=== PATIENT | female | born 1990 | race Caucasian/White ===

== ENCOUNTER → 2021-03-22 | Outpatient (CLI) | payer OTHER ==
--- NOTE | 2021-03-22 15:21 | US ---
EXAMINATION TYPE: Transabdominal DATE OF EXAM: 03/22/2021 3:07 PM COMPARISON: NONE CLINICAL HISTORY: Z36 CONFIRM DATES. EXAM PERFORMED: EXAM MEASUREMENTS: GESTATIONAL AGE / DATING Physician Established: Not yet established Dates by LMP: (8 weeks/5 days) EDC: 10-27-21 Dates by First Scan: No previous this is first Dates by Current Scan for: (9 weeks/0 days) EDC: 10-25-21 MATERNAL ANATOMY Uterus: 12.4 x 5.1 x 6.7cm Right Ovary: 2.0 x 1.6 x 1.4cm Left Ovary: 2.7 x 2.2 x 1.9cm Post CDS / Adnexa: wnl Presence of free fluid: no Possible corpus luteal cyst measuring 1.9 x 1.4 x 1.6cm GESTATION / SURVEY CRL: 2.3cm (9 weeks/0 days) Yolk Sac (normal less than 6mm): Heart Rate: 179 bpm Rhythm: Normal IUP: Viable IUP Date of LMP: 01-20-21 IMPRESSION: Single viable intrauterine .
== END | disposition home or self-care (01) ==
LOC: RADUSWWP 14:50
PROVIDERS: ATTEND Obstetrics & Gynecology
DX: Z36.89 Encounter for other specified antenatal screening (principal); Z3A.09 9 weeks gestation of pregnancy
CPT/HCPCS: 76801

== ENCOUNTER 2021-03-28 17:16 | Emergency (ER) | payer OTHER ==
[2021-03-28 17:24] VITALS: BP 126/85; PULSE 100; RESP 16; TEMP 97.8
[2021-03-28] MEDS ORDERED: SODIUM CHLORIDE 0.9% 1,000 ML IV STA (18:13)
[2021-03-28] MEDS ORDERED: ONDANSETRON 4 MG/2 ML VIAL IVP STA (18:13)
[2021-03-28 18:28] LABS: Basophils # (A) 0.1 k/uL (0-0.2); Basophils % (A) 1 %; Eosinophils # (A) 0.1 k/uL (0-0.7); Eosinophils % (A) 2 %; HCT 43.1 % (34.0-46.0); HGB 15.2 gm/dL (11.4-16.0); Lymphocytes # (A) 1.8 k/uL (1.0-4.8); Lymphocytes % (A) 20 %; MCH 30.6 pg (25.0-35.0); MCHC 35.3 g/dL (31.0-37.0); MCV 86.6 fL (80.0-100.0); Monocytes # (A) 0.5 k/uL (0-1.0); Monocytes % (A) 6 %; Neutrophils # (A) 6.4 k/uL (1.3-7.7); Neutrophils % (A) 70 %; Platelet Count 320 k/uL (150-450); RBC 4.98 m/uL (3.80-5.40); RDW 12.5 % (11.5-15.5); WBC 9.1 k/uL (3.8-10.6)
--- NOTE | 2021-03-28 18:33 | ED ---
Nausea/Vomiting/Diarrhea HPI - General Chief complaint: Nausea/Vomiting/Diarrhea Stated complaint: 10wks preg, N/V/D Time Seen by Provider: 03/28/21 17:53 Source: patient Mode of arrival: ambulatory Limitations: no limitations - History of Present Illness Initial comments: Patient is a 30-year-old female, currently 10 weeks , presenting to the emergency Department with complaints of intermittent nausea and vomiting over the past few weeks. She is also complaining of some diarrhea that started 2 days ago. This is patient's first , her DEAF AND HARD OF HEARING TEACHER is Dr. Mcclelland. She states she has been dealing with nausea throughout this but states it feels like its getting worse over the past week. She states she has not been able to tolerate many foods, can barely hold down any liquids. She did speak to her DEAF AND HARD OF HEARING TEACHER, Dr. Mcclelland about this and they recommended some Benadryl and B6 however patient states she is taking Benadryl to sleep and does not want to sleep all day. She denies any abdominal pain, no vaginal bleeding. She states she just had an ultrasound last week, baby looks well, no acute abnormalities. She denies any fevers or chills, no dysuria. She has no further complaints at this time. Upon arrival to the ER, her vital signs are stable. - Related Data Home Medications Medication Instructions Recorded Confirmed Pnv,Calcium 72/Iron/Folic Acid 1 tab PO HS 03/28/21 03/28/21 [ Plus Tablet] Previous Rx's Medication Instructions Recorded Metoclopramide [Reglan] 10 mg PO TID PRN #15 tab 03/28/21 Allergies Allergy/AdvReac Type Severity Reaction Status Date / Time No Known Allergies Allergy Verified 03/28/21 18:32 Review of Systems ROS Statement: Those systems with pertinent positive or pertinent negative responses have been documented in the HPI. ROS Other: All systems not noted in ROS Statement are negative. Past Medical History Past Medical History: No Reported History Past Surgical History: No Surgical Hx Reported Smoking Status: Never smoker Past Alcohol Use History: None Reported Past Drug Use History: None Reported General Exam - General Exam Comments Initial Comments: GENERAL: Patient is well-developed and well-nourished. Patient is nontoxic and in no acute distress. HEAD: Atraumatic, normocephalic. EYES: Pupils equal round and reactive to light, extraocular movements intact, sclera anicteric, conjunctiva are normal. Eyelids were unremarkable. ENT: TMs normal, nares patent, oropharynx clear without exudates. Moist mucous membranes. NECK: Normal range of motion, supple without lymphadenopathy or JVD. LUNGS: Unlabored respirations. Breath sounds clear to auscultation bilaterally and equal. No wheezes rales or rhonchi. HEART: Regular rate and rhythm without murmurs, rubs or gallops. ABDOMEN: Soft, nontender, normoactive bowel sounds. No guarding, no rebound. No masses appreciated. : Deferred MUSCULOSKELETAL: Normal extremities with adequate strength and normal range of motion, no pitting or edema. No clubbing or cyanosis. NEUROLOGICAL: Patient is alert and oriented x 3. Motor and sensory are also intact. Cranial nerves II through XII grossly intact. Symmetrical smile. Normal speech, normal gait. PSYCH: Normal mood, normal affect. SKIN: Warm, Dry, normal turgor, no rashes or lesions noted. Limitations: no limitations Course Vital Signs 03/28/21 17:21 Temperature 97.8 F Pulse Rate 100 Respiratory 16 Rate Blood Pressure 126/85 O2 Sat by Pulse 99 Oximetry Medical Decision Making - Medical Decision Making Patient is a 30-year-old female, currently 10 weeks , first , DEAF AND HARD OF HEARING TEACHER is Dr. Mcclelland, presenting for nausea and vomiting this been worsening over the past 2 weeks. She is also had 2 days of diarrhea. No abdominal pain, no vaginal bleeding. She just had an ultrasound last week, looks well, heart rate was normal. Her vital signs are stable upon arrival. No abdominal pain on exam. Patient's labs show no acute abnormality, urine did have 2+ ketones, no signs of infection. Patient was given a liter of fluids, Zofran and Reglan. She does report improvement in her symptoms. She states she is hungry and wishes to go home. Patient is complaining of a mild headache, requesting Tylenol at discharge. She can follow-up with her DEAF AND HARD OF HEARING TEACHER. Return parameters were discussed with the patient and she verbalized understanding. Case discussed with Dr. Grajeda. - Lab Data Result diagrams: 03/28/21 18:16 03/28/21 18:16 Lab Results 03/28/21 03/28/21 03/28/21 Range/Units 18:16 18:16 18:16 WBC 9.1 (3.8-10.6) k/uL RBC 4.98 (3.80-5.40) m/uL Hgb 15.2 (11.4-16.0) gm/dL Hct 43.1 (34.0-46.0) % MCV 86.6 (80.0-100.0) fL MCH 30.6 (25.0-35.0) pg MCHC 35.3 (31.0-37.0) g/dL RDW 12.5 (11.5-15.5) % Plt Count 320 (150-450) k/uL MPV 7.0 Neutrophils % 70 % Lymphocytes % 20 % Monocytes % 6 % Eosinophils % 2 % Basophils % 1 % Neutrophils # 6.4 (1.3-7.7) k/uL Lymphocytes # 1.8 (1.0-4.8) k/uL Monocytes # 0.5 (0-1.0) k/uL Eosinophils # 0.1 (0-0.7) k/uL Basophils # 0.1 (0-0.2) k/uL Sodium 137 (137-145) mmol/L Potassium 4.0 (3.5-5.1) mmol/L Chloride 103 (98-107) mmol/L Carbon Dioxide 22 (22-30) mmol/L Anion Gap 12 mmol/L BUN 8 (7-17) mg/dL Creatinine 0.59 (0.52-1.04) mg/dL Est GFR (CKD-EPI)AfAm >90 (>60 ml/min/1.73 sqM) Est GFR (CKD-EPI)NonAf >90 (>60 ml/min/1.73 sqM) Glucose 88 (74-99) mg/dL Calcium 10.4 H (8.4-10.2) mg/dL Total Bilirubin 1.5 H (0.2-1.3) mg/dL AST 19 (14-36) U/L ALT 16 (4-34) U/L Alkaline Phosphatase 62 (38-126) U/L Total Protein 8.3 H (6.3-8.2) g/dL Albumin 5.1 H (3.5-5.0) g/dL Urine Color Yellow Urine Appearance Cloudy H (Clear) Urine pH 6.0 (5.0-8.0) Ur Specific [place] 1.025 (1.001-1.035) Urine Protein Trace H (Negative) Urine Glucose (UA) Negative (Negative) Urine Ketones 2+ H (Negative) Urine Blood Negative (Negative) Urine Nitrite Negative (Negative) Urine Bilirubin Negative (Negative) Urine Urobilinogen <2.0 (<2.0) mg/dL Ur Leukocyte Esterase Large H (Negative) Urine WBC 8 H (0-5) /hpf Ur Squamous Epith Cells 12 H (0-4) /hpf Urine Mucus Many H (None) /hpf Disposition Clinical Impression: Dehydration, Nausea and vomiting during Disposition: HOME SELF-CARE Condition: Stable Instructions (If sedation given, give patient instructions): Acute Nausea and Vomiting (ED) Additional Instructions: Please return to the Emergency Department if symptoms worsen or any other concerns. Recommended trial of Benadryl at nighttime, may take Reglan for severe nausea or vomiting. Please follow up with your DEAF AND HARD OF HEARING TEACHER. Prescriptions: Metoclopramide [Reglan] 10 mg PO TID PRN #15 tab PRN Reason: Nausea Is patient prescribed a controlled substance at d/c from ED?: No Referrals: None,Stated [Primary Care Provider] - 1-2 days Isaura Mcclelland DO [Doctor of Osteopathic Medicine] - 1-2 days Time of Disposition: 20:35
[2021-03-28 18:37] LABS: ALT 16 U/L (4-34); AST 19 U/L (14-36); African American GFR (CKD) >90 (>60 ml/min/1.73 sqM); Albumin 5.1 g/dL (3.5-5.0); Alkaline Phosphatase 62 U/L (38-126); Anion Gap 12 mmol/L; Blood Urea Nitrogen 8 mg/dL (7-17); Calcium 10.4 mg/dL (8.4-10.2); Carbon Dioxide 22 mmol/L (22-30); Chloride 103 mmol/L (98-107); Glucose 88 mg/dL (74-99); Non-African American GFR(CKD) >90 (>60 ml/min/1.73 sqM); Sodium 137 mmol/L (137-145); Total Bilirubin 1.5 mg/dL (0.2-1.3); Total Protein 8.3 g/dL (6.3-8.2)
[2021-03-28 18:39] LABS: Appearance,Urine Cloudy (Clear); Bilirubin,Urine Negative (Negative); Blood,Urine Negative (Negative); Color,Urine Yellow; Glucose,Urine (UA) Negative (Negative); Ketones,Urine 2+ (Negative); Leukocyte Esterase,Urine Large (Negative); Mucus,Urine Many /hpf; Nitrite,Urine Negative (Negative); Protein,Urine Trace (Negative); Specific Gravity,Urine 1.025 (1.001-1.035); Squamous Epithelial Cell,Urine 12 /hpf (0-4); Urobilinogen,Urine <2.0 mg/dL (<2.0); WBC,Urine 8 /hpf (0-5)
[2021-03-28] MEDS ORDERED: METOCLOPRAMIDE 5 MG/ML 2 ML VIAL IVP STA (19:21)
[2021-03-28] MEDS ORDERED: ACETAMINOPHEN TAB 325 MG TAB PO STA (20:36)
== END 2021-03-28 20:49 | disposition home or self-care (01) ==
LOC: EC 17:16
DX: O99.281 Endocrine, nutritional and metabolic diseases complicating pregnancy, first trimester (principal); E86.0 Dehydration; O21.9 Vomiting of pregnancy, unspecified; O26.891 Other specified pregnancy related conditions, first trimester; R19.7 Diarrhea, unspecified; R51.9 Headache, unspecified; Z79.899 Other long term (current) drug therapy; Z3A.10 10 weeks gestation of pregnancy
CPT/HCPCS: 36415; 80053; 85025; 81001; 99284; 96374; 96375; 96361; J2765; J2405

== ENCOUNTER 2021-05-01 14:32 | Emergency (ER) | payer OTHER ==
[2021-05-01 14:56] VITALS: BP 144/85; PULSE 96; RESP 16; TEMP 98.5
[2021-05-01] MEDS ORDERED: SODIUM CHLORIDE 0.9% 1,000 ML IV ONE (15:16)
[2021-05-01 15:50] LABS: Basophils # (A) 0.1 k/uL (0-0.2); Basophils % (A) 1 %; Eosinophils # (A) 0.1 k/uL (0-0.7); Eosinophils % (A) 1 %; HGB 13.4 gm/dL (11.4-16.0); Lymphocytes # (A) 1.1 k/uL (1.0-4.8); Lymphocytes % (A) 14 %; MCH 31.3 pg (25.0-35.0); MCHC 36.2 g/dL (31.0-37.0); MCV 86.5 fL (80.0-100.0); Monocytes # (A) 0.3 k/uL (0-1.0); Monocytes % (A) 4 %; Neutrophils % (A) 79 %; Platelet Count 303 k/uL (150-450); RBC 4.27 m/uL (3.80-5.40); WBC 7.6 k/uL (3.8-10.6)
[2021-05-01 16:00] LABS: ALT 15 U/L (4-34); AST 19 U/L (14-36); African American GFR (CKD) >90 (>60 ml/min/1.73 sqM); Albumin 4.4 g/dL (3.5-5.0); Alkaline Phosphatase 58 U/L (38-126); Anion Gap 9 mmol/L; Blood Urea Nitrogen 7 mg/dL (7-17); Calcium 9.7 mg/dL (8.4-10.2); Carbon Dioxide 24 mmol/L (22-30); Chloride 104 mmol/L (98-107); Glucose 83 mg/dL (74-99); Non-African American GFR(CKD) >90 (>60 ml/min/1.73 sqM); Potassium 4.3 mmol/L (3.5-5.1); Sodium 137 mmol/L (137-145); Total Bilirubin 0.9 mg/dL (0.2-1.3); Total Protein 7.4 g/dL (6.3-8.2)
--- NOTE | 2021-05-01 16:19 | ED ---
Abdominal Pain HPI - General Chief Complaint: Abdominal Pain Stated Complaint: Poss miscarriage Time Seen by Provider: 05/01/21 15:03 Source: patient, RN notes reviewed Mode of arrival: ambulatory Limitations: no limitations - History of Present Illness Initial Comments: 31-year-old female presents to emergency department with some abdominal cramping. She notes she is 15 weeks . She notes that she has vomited several times of the last 2 days. She notes that she came in for evaluation as she was just concerned about her baby. She was in no apparent distress or pain while sitting up in bed during the exam and interview. She denied any other symptoms or complaints. She denied any vaginal bleeding/spotting. She notes that she did not call her COMPUTER SYSTEMS TECHNOLOGY INSTRUCTOR she just can emergency room to get evaluated first. She denied any chest pain first breath headache nausea vomiting diarrhea constipation fever fatigue chills. - Related Data Home Medications Medication Instructions Recorded Confirmed Pnv,Calcium 72/Iron/Folic Acid 1 tab PO HS 03/28/21 03/28/21 [ Plus Tablet] Previous Rx's Medication Instructions Recorded Metoclopramide [Reglan] 10 mg PO TID PRN #15 tab 03/28/21 Allergies Allergy/AdvReac Type Severity Reaction Status Date / Time No Known Allergies Allergy Verified 05/01/21 14:54 Review of Systems ROS Statement: Those systems with pertinent positive or pertinent negative responses have been documented in the HPI. ROS Other: All systems not noted in ROS Statement are negative. Past Medical History Past Medical History: No Reported History History of Any Multi-Drug Resistant Organisms: None Reported Past Surgical History: No Surgical Hx Reported Past Psychological History: No Psychological Hx Reported Smoking Status: Never smoker Past Alcohol Use History: None Reported Past Drug Use History: None Reported General Exam Limitations: no limitations General appearance: alert, in no apparent distress Head exam: Present: atraumatic, normocephalic, normal inspection Eye exam: Present: normal appearance, PERRL, EOMI. Absent: scleral icterus, conjunctival injection, periorbital swelling Neck exam: Present: normal inspection Respiratory exam: Present: normal lung sounds bilaterally. Absent: respiratory distress, wheezes, rales, rhonchi, stridor Cardiovascular Exam: Present: regular rate, normal rhythm, normal heart sounds. Absent: systolic murmur, diastolic murmur, rubs, gallop, clicks GI/Abdominal exam: Present: soft, normal bowel sounds, other (Discomfort lower abdomen to palpation, nontender). Absent: distended, tenderness, guarding, rebound, rigid Extremities exam: Present: normal inspection, full ROM, normal capillary refill. Absent: tenderness, pedal edema, joint swelling, calf tenderness Neurological exam: Present: alert, oriented X3 Psychiatric exam: Present: normal affect, normal mood Skin exam: Present: warm, dry, intact, normal color. Absent: rash Course Vital Signs 05/01/21 14:54 Temperature 98.5 F Pulse Rate 96 Respiratory 16 Rate Blood Pressure 144/85 O2 Sat by Pulse 98 Oximetry Medical Decision Making - Medical Decision Making 31-year-old female who is 15 weeks complaining of abdominal cramping and some discomfort in her lower abdomen. Labs, ultrasound, 1 L normal saline ordered. Labs unremarkable. Ultrasound negative for any acute process shows a 16 week 1 day gestation. Case discussed with Dr. Vance, patient can discharge home with follow-up to COMPUTER SYSTEMS TECHNOLOGY INSTRUCTOR. - Lab Data Result diagrams: 05/01/21 15:29 05/01/21 15:29 Lab Results 05/01/21 05/01/21 05/01/21 Range/Units 15:29 15:29 16:13 WBC 7.6 (3.8-10.6) k/uL RBC 4.27 (3.80-5.40) m/uL Hgb 13.4 (11.4-16.0) gm/dL Hct 37.0 (34.0-46.0) % MCV 86.5 (80.0-100.0) fL MCH 31.3 (25.0-35.0) pg MCHC 36.2 (31.0-37.0) g/dL RDW 13.0 (11.5-15.5) % Plt Count 303 (150-450) k/uL MPV 7.0 Neutrophils % 79 % Lymphocytes % 14 % Monocytes % 4 % Eosinophils % 1 % Basophils % 1 % Neutrophils # 6.0 (1.3-7.7) k/uL Lymphocytes # 1.1 (1.0-4.8) k/uL Monocytes # 0.3 (0-1.0) k/uL Eosinophils # 0.1 (0-0.7) k/uL Basophils # 0.1 (0-0.2) k/uL Sodium 137 (137-145) mmol/L Potassium 4.3 (3.5-5.1) mmol/L Chloride 104 (98-107) mmol/L Carbon Dioxide 24 (22-30) mmol/L Anion Gap 9 mmol/L BUN 7 (7-17) mg/dL Creatinine 0.46 L (0.52-1.04) mg/dL Est GFR (CKD-EPI)AfAm >90 (>60 ml/min/1.73 sqM) Est GFR (CKD-EPI)NonAf >90 (>60 ml/min/1.73 sqM) Glucose 83 (74-99) mg/dL Calcium 9.7 (8.4-10.2) mg/dL Total Bilirubin 0.9 (0.2-1.3) mg/dL AST 19 (14-36) U/L ALT 15 (4-34) U/L Alkaline Phosphatase 58 (38-126) U/L Total Protein 7.4 (6.3-8.2) g/dL Albumin 4.4 (3.5-5.0) g/dL HCG, Quant 99460.1 mIU/mL Blood Type O Positive Blood Type Recheck No Previous Record Bld Type Recheck Status [facility] ONLY - Radiology Data Radiology results: report reviewed, image reviewed Ultrasound: The ultrasound gestational age is 16 weeks 1 day. The weight is 97%. No [place] came process seen. Disposition Clinical Impression: Abdominal pain Disposition: HOME SELF-CARE Condition: Stable Instructions (If sedation given, give patient instructions): Abdominal Pain (ED) Additional Instructions: Please return to the Emergency Department if symptoms worsen or any other concerns. Follow-up with COMPUTER SYSTEMS TECHNOLOGY INSTRUCTOR as soon as possible. Increase oral fluids. Is patient prescribed a controlled substance at d/c from ED?: No Referrals: None,Stated [Primary Care Provider] - 1-2 days Time of Disposition: 17:22
[2021-05-01 16:44] LABS: HCG,Quantitative Serum 33779.1 mIU/mL
--- NOTE | 2021-05-01 17:05 | US ---
EXAMINATION TYPE: US OB >= 14 wk fetus DATE OF EXAM: 05/01/2021 COMPARISON: 03/22/2021 CLINICAL HISTORY: pain TECHNIQUE: Transabdominal (TA) GESTATIONAL AGE / DATING Physician Established: (14 weeks/6 days) EDC: 10-24-21 Dates by LMP: (14weeks/3days) 10-27-21 Dates by First Scan: (14weeks/5days) 10-25-21 Dates by Current Scan: (16 weeks/1 days) EDC: 10-15-21 SURVEY IUP: Single PLACENTA: Posterior PREVIA: No Previa FRANCISCO: 13.8 cm CERVICAL LENGTH (transabdominal: norm > 3.0cm): 3.3 cm BIOMETRY PRESENTATION: Breech BPD: 3.2 cm 16 weeks / 0 days HC: 12.1 cm 16 weeks / 0 days AC: 10.0 cm 16 weeks / 0 days FL: 2.0 cm 16 weeks / 0 days ESTIMATED WEIGHT IN GRAMS: 143 grams ESTIMATED WEIGHT IN LBS/OZ: 0 lbs. 5 oz. WEIGHT PERCENTAGE BASED ON ESTABLISHED DATES: 97% HC/AC: 1.2 FL/AC: 20 HEART RATE: 149 bpm RHYTHM: Normal IMPRESSION: The ultrasound gestational age is 16 weeks and 1 day. The weight is 97 percentile. No complicat ing process seen.
== END 2021-05-01 18:01 | disposition home or self-care (01) ==
LOC: EC 14:32
DX: O26.892 Other specified pregnancy related conditions, second trimester (principal); R10.30 Lower abdominal pain, unspecified; Z3A.16 16 weeks gestation of pregnancy
CPT/HCPCS: 36415; 76805; 80053; 84702; 85025; 86900; 86901; 96360; 99284

== ENCOUNTER 2021-07-15 13:14 | Emergency (ER) | payer OTHER ==
--- NOTE | 2021-07-15 13:58 | ED ---
General Adult HPI - General Chief complaint: Psychiatric Symptoms Stated complaint: EPS eval Time Seen by Provider: 07/15/21 13:25 Source: patient, RN notes reviewed, old records reviewed Mode of arrival: ambulatory Limitations: no limitations - History of Present Illness Initial comments: 31-year-old female presenting with chief complaint of depression, suicidal ideation. Denies suicide attempt. She is currently 27 weeks she is having some mild abdominal cramping. No vaginal discharge or vaginal bleeding. This is her first . She is following with obstetrics as an outpatient. She reports increased stress in her life increased depression and anxiety, and suicidal ideation. - Related Data Home Medications Medication Instructions Recorded Confirmed Pnv,Calcium 72/Iron/Folic Acid 1 tab PO HS 03/28/21 03/28/21 [ Plus Tablet] Previous Rx's Medication Instructions Recorded Metoclopramide [Reglan] 10 mg PO TID PRN #15 tab 03/28/21 Allergies Allergy/AdvReac Type Severity Reaction Status Date / Time No Known Allergies Allergy Verified 07/15/21 13:22 Review of Systems ROS Statement: Those systems with pertinent positive or pertinent negative responses have been documented in the HPI. ROS Other: All systems not noted in ROS Statement are negative. Past Medical History Past Medical History: No Reported History History of Any Multi-Drug Resistant Organisms: None Reported Past Surgical History: No Surgical Hx Reported Past Psychological History: No Psychological Hx Reported Smoking Status: Never smoker Past Alcohol Use History: None Reported Past Drug Use History: None Reported General Exam Limitations: no limitations General appearance: alert, anxious Head exam: Present: atraumatic, normocephalic Eye exam: Present: normal appearance, PERRL ENT exam: Present: normal exam Neck exam: Present: normal inspection. Absent: tenderness, meningismus Respiratory exam: Present: normal lung sounds bilaterally. Absent: respiratory distress, wheezes Cardiovascular Exam: Present: regular rate, normal rhythm GI/Abdominal exam: Present: soft, other (Gravid). Absent: distended, tenderness, guarding Extremities exam: Present: normal inspection, normal capillary refill. Absent: pedal edema Neurological exam: Present: alert, oriented X3, CN II-XII intact. Absent: motor sensory deficit Psychiatric exam: Present: depressed, anxious, suicidal ideation Skin exam: Present: warm, dry, intact. Absent: cyanosis, diaphoretic Course Vital Signs 07/15/21 13:22 Temperature 98.2 F Pulse Rate 100 Respiratory 18 Rate Blood Pressure 144/102 O2 Sat by Pulse 97 Oximetry - Reevaluation(s) Reevaluation #1: 07/15/21 13:[address] Jason covering for Dr. Hatfield who is the patient's complementary health therapists who recommends monitoring and cervix checked. OB staff has been contacted. Medical Decision Making - Medical Decision Making Patient had been evaluated both by obstetrics, had normal heart tones, closed cervix. She was also evaluated by EPS and felt to be safe for discharge. She's given outpatient referrals. I did reevaluate the patient and she is indeed significantly improved and feeling agreeable with discharge. Return parameters discussed. - Lab Data Lab Results 07/15/21 Range/Units 15:53 Urine Color Yellow Urine Appearance Cloudy H (Clear) Urine pH 6.5 (5.0-8.0) Ur Specific [place] 1.016 (1.001-1.035) Urine Protein Negative (Negative) Urine Glucose (UA) Negative (Negative) Urine Ketones Negative (Negative) Urine Blood Negative (Negative) Urine Nitrite Negative (Negative) Urine Bilirubin Negative (Negative) Urine Urobilinogen <2.0 (<2.0) mg/dL Ur Leukocyte Esterase Moderate H (Negative) Urine RBC <1 (0-5) /hpf Urine WBC 9 H (0-5) /hpf Ur Squamous Epith Cells 3 (0-4) /hpf Urine Bacteria Few H (None) /hpf Urine Mucus Occasional H (None) /hpf Disposition Clinical Impression: Depression, Disposition: HOME SELF-CARE Condition: Fair Instructions (If sedation given, give patient instructions): Depression (ED) Additional Instructions: Please follow up with [facility]. Please return to the emergency department if needed. Please follow up with your complementary health therapists. Is patient prescribed a controlled substance at d/c from ED?: No Referrals: None,Stated [Primary Care Provider] - 1-2 days
[2021-07-15 16:00] LABS: Appearance,Urine Cloudy (Clear); Bacteria,Urine Few /hpf; Bilirubin,Urine Negative (Negative); Blood,Urine Negative (Negative); Color,Urine Yellow; Glucose,Urine (UA) Negative (Negative); Ketones,Urine Negative (Negative); Leukocyte Esterase,Urine Moderate (Negative); Mucus,Urine Occasional /hpf; Nitrite,Urine Negative (Negative); PH, Urine 6.5 (5.0-8.0); Protein,Urine Negative (Negative); RBC,Urine <1 /hpf (0-5); Specific Gravity,Urine 1.016 (1.001-1.035); Squamous Epithelial Cell,Urine 3 /hpf (0-4); Urobilinogen,Urine <2.0 mg/dL (<2.0); WBC,Urine 9 /hpf (0-5)
[2021-07-15 16:10] VITALS: BP 156/83; PULSE 84; RESP 16; TEMP 97.8
[2021-07-15 16:19] LABS: Amphetamine Screen,Urine Not Detected (NotDetected); Barbiturate Screen,Urine Not Detected (NotDetected); Benzodiazepines Screen,Urine Not Detected (NotDetected); Cocaine Screen,Urine Not Detected (NotDetected); Methadone Screen, Urine Not Detected (NotDetected); Opiate Screen,Urine Not Detected (NotDetected); Oxycodone Screen, Urine Not Detected (NotDetected); Phencyclidine Screen,Urine Not Detected (NotDetected); Tricyclic Antidepressant,Urine Not Detected (NotDetected); Urn Cannabinoid Scrn Not Detected (NotDetected)
== END 2021-07-15 16:09 | disposition home or self-care (01) ==
LOC: EC 13:14
DX: O99.342 Other mental disorders complicating pregnancy, second trimester (principal); F32.9 Major depressive disorder, single episode, unspecified; Z3A.27 27 weeks gestation of pregnancy
CPT/HCPCS: 80306; 81001; 99284

== ENCOUNTER 2021-09-01 10:53 | Outpatient (CLI) | payer OTHER ==
[2021-09-01] MEDS ORDERED: AMPICILLIN 2,000 MG in SODIUM CHLORIDE 0.9% 100 ML IVPB STA (11:25)
[2021-09-01] MEDS ORDERED: AZITHROMYCIN 500 MG in SODIUM CHLORIDE 0.9% 250 ML IVPB STA (11:25)
[2021-09-01] MEDS ORDERED: hydrALAZINE HCL 20 MG/ML 1 ML VIAL IVP PRN (11:27)
[2021-09-01] MEDS ORDERED: LABETALOL 5 MG/ML VIAL MDV IVP PRN ×3 (11:27)
[2021-09-01] MEDS ORDERED: LACTATED RINGERS 1,000 ML IV SCH (11:30)
[2021-09-01 11:42] LABS: Basophils # (A) 0.1 k/uL (0-0.2); Basophils % (A) 1 %; Eosinophils # (A) 0.1 k/uL (0-0.7); Eosinophils % (A) 1 %; HCT 37.1 % (34.0-46.0); HGB 12.8 gm/dL (11.4-16.0); Lymphocytes # (A) 1.8 k/uL (1.0-4.8); Lymphocytes % (A) 18 %; MCH 30.6 pg (25.0-35.0); MCHC 34.4 g/dL (31.0-37.0); MCV 88.8 fL (80.0-100.0); Mean Platelet Volume 8.2; Monocytes # (A) 0.4 k/uL (0-1.0); Monocytes % (A) 4 %; Neutrophils # (A) 7.5 k/uL (1.3-7.7); Neutrophils % (A) 75 %; Platelet Count 286 k/uL (150-450); RBC 4.17 m/uL (3.80-5.40); RDW 12.8 % (11.5-15.5)
[2021-09-01 11:48] LABS: ALT 14 U/L (4-34); AST 16 U/L (14-36); African American GFR (CKD) >90 (>60 ml/min/1.73 sqM); Blood Urea Nitrogen 10 mg/dL (7-17); LDH 385 U/L (313-618); Non-African American GFR(CKD) >90 (>60 ml/min/1.73 sqM); Uric Acid 5.1 mg/dL (3.7-7.4)
[2021-09-01] MEDS ORDERED: BETAMET ACET-BETAMETH SOD PHOS 6 MG/ML MDV IM SCH (12:00)
[2021-09-01] MEDS ORDERED: MAGNESIUM SULFATE-WATER PMX 20 GM in WATER FOR INJECTION 1 500ML.BAG IV SCH (12:00)
[2021-09-01] MEDS ORDERED: MAGNESIUM SULFATE GM 6 GM in SODIUM CHLORIDE 0.9% 100 ML IVPB ONE (12:00)
[2021-09-01 12:03] LABS: Creatinine,Urine Random 91.5 mg/dL; Protein/Creatinine Ratio,Urine 0.087
--- NOTE | 2021-09-01 12:42 | P.HPOB ---
History of Present Illness H&P Date: 09/01/21 Chief Complaint: Spontaneous rupture of membranes This is a 31-year-old female 1 para 0 with an estimated date of confinement of 10/25/2021, estimated gestational age of 32-2/7 weeks, who presented to labor and delivery with complaints of spontaneous rupture of membr anes with clear fluid noted at approximately 10:17 AM this morning when she woke up. She states she sleeps with a pillow between her legs in the pillow was completely saturated and when she got up she continued to leak fluid. She denies feeling any contractions. She denies any headaches or blurry vision or epigastric pain. She denies any swelling. She was confirmed to be ruptured with positive amnisure in triage. No contractions are noted on the monitor. care up until this point has been essentially uncomplicated. Patient has had some issues with anxiety and had been using marijuana throughout the . At her last visit on 08/20/2021, she denied using any marijuana cu rrently however the room did smell of a strong THC order. Urine drug screen was obtained at that time and was negative. She is currently seeing a counselor for her anxiety and depression issues. All H labs are within normal limits with a PC ratio 0.087. Obstetrical ultrasound is performed at bedside and shows baby in a breech presentation with estimated weight of 4 lbs. 14 oz. or 2218 g (75 percentile), and FRANCISCO of 12.5 cm. Obstetrical history: This is her first Gynecologic history: She denies any history of sexually transmitted diseases. Social history: She is single. Significant other is involved. labs: First ultrasound was performed at 9 weeks and 0/7 days in confirms an EDC of 10/25/2021. She was unsure of her last menstrual period. Hepatitis B surface antigen-negative RPR-nonreactive Rubella-immune Blood type-O+ Antibody screen-negative HIV-nonreactive Hemoglobin-13.1 Random glucose-76 Quad screen-negative One hour Glucola-122 Urine drug screen on 08/20/2021-negative Pap smear-within normal limits with high risk HPV negative GC/Chlamydia/Trichomonas-negative Review of Systems Constitutional: Denies chills, Denies fever Eyes: denies blurred vision, denies pain Ears, nose, mouth and throat: Denies headache, Denies sore throat Cardiovascular: Denies chest pain, Denies shortness of breath Respiratory: Denies cough Gastrointestinal: Denies abdominal pain, Denies nausea, Denies vomiting Genitourinary: Reports , Denies pelvic pain Musculoskeletal: Denies myalgias Integumentary: Denies pruritus, Denies rash Neurological: Denies numbness, Denies weakness Past Medical History Past Medical History: No Reported History History of Any Multi-Drug Resistant Organisms: None Reported Past Surgical History: No Surgical Hx Reported Past Anesthesia/Blood Transfusion Reactions: No Reported Reaction Past Psychological History: Anxiety, Depression Smoking Status: Never smoker Past Alcohol Use History: None Reported Past Drug Use History: Marijuana - Past Family History Mother Family Medical History: Cancer (Breast cancer) Medications and Allergies Home Medications Medication Instructions Recorded Confirmed Type Pnv,Calcium 72/Iron/Folic Acid 1 tab PO HS 03/28/21 09/01/21 History [ Plus Tablet] Allergies Allergy/AdvReac Type Severity Reaction Status Date / Time No Known Allergies Allergy Verified 09/01/21 11:04 Exam Osteopathic Statement: *. No significant issues noted on an osteopathic structural exam other than those noted in the History and Physical/Consult. Intake and Output 08/31/21 09/01/21 09/01/21 22:59 06:59 14:59 Other: Weight 82.554 kg Gen.: Well-developed well-nourished female in no acute distress HEENT: Within normal limits Heart: Regular rate and rhythm Lungs: Clear to auscultation bilaterally Abdomen: heart tones: Reactive, category 1 Contractions: Rare Pelvic: Positive amnisure with clear fluid noted. Exam is performed by nursing staff showed fingertip/thick and high Extremities: Negative Homans Results Result Diagrams: 09/01/21 11:25 09/01/21 11:25 Assessment and Plan (1) premature rupture of membranes (PPROM) with unknown onset of labor Current Visit: Yes Status: Acute Code(s): O42.919 - PRETRM MERLIN ROM, UNSP TIME BETW RUPT AND ONST LABR, UNSP TRI SNOMED Code(s): 46852685101881949 (2) 32 weeks gestation of Current Visit: Yes Status: Acute Code(s): Z3A.32 - 32 WEEKS GESTATION OF SNOMED Code(s): 6612473 (3) Gestational hypertension affecting first Current Visit: Yes Status: Acute Code(s): O13.9 - GESTATIONAL HTN W/O SI GNIFICANT PROTEINURIA, UNSP TRIMESTER SNOMED Code(s): 13327895 Plan: The patient has been started on magnesium sulfate seizure prophylaxis and has been given ampicillin and Zithromax. She has also been given betamethasone times one dose. Shaw catheter is in place. I did speak with Dr. Lovelace at [facility] who has accepted transfer. The patient will be transferred via ambulance to this facility due to prematurity, premature rupture of membranes and elevated blood pressures. All reports will be sent with the patient.
[2021-09-01 12:55] VITALS: RESP 16
--- NOTE | 2021-09-01 12:57 | US ---
EXAMINATION TYPE: US OB >= 14 wk fetus DATE OF EXAM: 09/01/2021 COMPARISON: None CLINICAL HISTORY: patients water broke TECHNIQUE: Transabdominal (TA) GESTATIONAL AGE / DATING Physician Established: (32 weeks/3 days) EDC: 15- Dates by LMP: (32 weeks/0 days) EDC: 10-27-21 Dates by First Scan: (32 weeks/2 days) EDC: 10-25-21 Dates by Current Scan: (33 weeks/4 days) EDC: 10-16-21 SURVEY IUP: Single PLACENTA: Posterior PREVIA: No Previa FRANCISCO: 12.5 cm CERVICAL LENGTH (transabdominal: norm > 3.0cm): not visualized, RN stated TV not indicated at this ti wv BIOMETRY PRESENTATION: Breech BPD: 8.5 cm 34 weeks / 1 days HC: 31.3 cm 35 weeks / 0 days AC: 29.2 cm 33 weeks / 2 days FL: 6.5 cm 33 weeks / 3 days ESTIMATED WEIGHT IN GRAMS: 2218 grams ESTIMATED WEIGHT IN LBS/OZ: 4 lbs. 14 oz. WEIGHT PERCENTAGE BASED ON ESTABLISHED DATES: 75% HC/AC: 1.1 FL/AC: 22.2 HEART RATE: 137 bpm RHYTHM: Normal IMPRESSION: Single viable intrauterine .
[2021-09-01 13:39] VITALS: BP 184/102; PULSE 64; TEMP 98.1
[2021-09-01 15:06] LABS: Appearance,Urine Clear (Clear); Bilirubin,Urine Negative (Negative); Blood,Urine Negative (Negative); Color,Urine Light Yellow; Glucose,Urine (UA) Negative (Negative); Ketones,Urine Negative (Negative); Leukocyte Esterase,Urine Negative (Negative); Nitrite,Urine Negative (Negative); PH, Urine 6.5 (5.0-8.0); Protein,Urine Negative (Negative); Specific Gravity,Urine 1.017 (1.001-1.035); Urobilinogen,Urine <2.0 mg/dL (<2.0)
--- NOTE | 2021-09-02 11:56 | P.MSEPDOC ---
Presenting Problems - Arrival Data Date of Arrival on Unit: 09/01/21 Time of Arrival on Unit: 10:54 Mode of Transport: Ambulatory - Complaint OB-Reason for Admission/Chief Complaint: Rule Out SROM Comment: Patient presents to triage with c/o possible rupture of membranes around 1017. States she did have intercourse last night. Denies cramping or vaginal bleeding at this time. Medical History - Information : 1 Para: 0 Term: 0 : 0 Abortions: Spontaneous or Elective: 0 Number of Living Children: 0 - Gestational Age Gestational Age by WENDY (wks/days): 32 Weeks and 2 Days Review of Systems - Review of Systems Constitutional: No problems Breast: No problems ENT: No problems Cardiovascular: No problems Respiratory: No problems Gastrointestinal: No problems Genitourinary: No problems Musculoskeletal: No problems Neurological: No problems Skin: No problems Vital Signs - Temperature Temperature: 98.1 F Temperature Source: Oral - Pulse Pulse Oximetery Pulse Rate: 64 Pulse Assessment Method: Pulse Oximetry - Respirations Respiratory Rate: 16 Oxygen Delivery Method: Room Air - Blood Pressure Sitting Blood Pressure: 184/102 Blood Pressure Mean: 129 Blood Pressure Source: Automatic Cuff Medical Screen Scoring - Cervical Exam Dilation (cm): 0 Membranes: Intact - Uterine Contractions Resting: Soft to palpation - Assessment - Baby A Baseline FHR: 140 Heart Rate - NICHD Category: Category I (Normal) NST: Reactive Physician Notification - Physician Notified Physician Notified Date: 09/01/21 Physician Notified Time: 11:17 Physician: Isaura Mcclelland New Order Received: Yes - Notification Comment Comment: Orders given to initiate iv acces, insert a larsen catheter, start zithromax 500 mg ivpb, after zithromax give ampicillin 2gm ivpb, give betamethasone 12mg im, order a complete ob ultrasound, draw PIH labs. At 1151 Dr. Mcclelland at bedside, orders magnesium sulfate 6gm bolus dose, with a 2gm maint ance dose to follow. Patient to be trasnferred. Maternal Triage Index - Urgent/Priority 2 Urgent Priority 2: Yes Provider Notified: Isaura Mcclelland Provider Notified Time: 11:17 Criteria Met for Priority 2: 32 2/7 presents with SROM around 1017 this am, confirmed with a positive amnisure. Blood pressure on admission 184/102, with a repeat 10 minutes later of 186/120. Patient asymptomatic, no headach, blurred vision, dizziness, edema, epigastric pain noted. Bilateral Patellar reflexes 1+ clonus absent. Disposition - Disposition OB Disposition: Transfer to other dept./facility Transferred to:: [facility] Discharge Date: 09/01/21 Discharge Time: 13:20 I agree with the RN Medical Screening Exam: Yes Case reviewed; plan agreed upon as documented in EMR&OBIX.: Yes Diagnosis: PRETRM MERLIN ROM, UNSP TIME BETW RUPT AND ONST LABR, 3RD TRI
== END 2021-09-01 13:20 ==
LOC: FBPOP 10:53
PROVIDERS: ATTEND Obstetrics & Gynecology
DX: O42.913 Preterm premature rupture of membranes, unspecified as to length of time between rupture and onset of labor, third trimester (principal); O13.3 Gestational [pregnancy-induced] hypertension without significant proteinuria, third trimester; O99.343 Other mental disorders complicating pregnancy, third trimester; F32.9 Major depressive disorder, single episode, unspecified; F41.9 Anxiety disorder, unspecified; Z3A.33 33 weeks gestation of pregnancy
CPT/HCPCS: 59025; 96361; 96365; 96366; 96375; 96372; 84112; 82570; 84156; 82565; 83615; 84450; 84460; 84520; 84550; 85025; 81003; 76805; G0463; J0456; J3475 ×2; J0290; J0702; 99215

== ENCOUNTER 2022-04-08 08:23 | Emergency (ER) | payer OTHER ==
[2022-04-08 08:29] VITALS: RESP 18; TEMP 98.4
[2022-04-08] MEDS ORDERED: KETOROLAC 15 MG/ML 1 ML VIAL IVP STA (09:15)
[2022-04-08 09:43] VITALS: PULSE 72
[2022-04-08 09:45] LABS: Basophils # (A) 0.1 k/uL (0-0.2); Basophils % (A) 1 %; Eosinophils # (A) 0.2 k/uL (0-0.7); Eosinophils % (A) 2 %; HCT 42.3 % (34.0-46.0); HGB 14.3 gm/dL (11.4-16.0); Lymphocytes # (A) 1.5 k/uL (1.0-4.8); Lymphocytes % (A) 17 %; MCH 29.8 pg (25.0-35.0); MCHC 33.7 g/dL (31.0-37.0); MCV 88.6 fL (80.0-100.0); Monocytes # (A) 0.5 k/uL (0-1.0); Monocytes % (A) 5 %; Neutrophils # (A) 6.4 k/uL (1.3-7.7); Neutrophils % (A) 73 %; Platelet Count 306 k/uL (150-450); RBC 4.78 m/uL (3.80-5.40); RDW 14.1 % (11.5-15.5); WBC 8.8 k/uL (3.8-10.6)
[2022-04-08 09:48] LABS: ALT 26 U/L (4-34); AST 22 U/L (14-36); African American GFR (CKD) >90 (>60 ml/min/1.73 sqM); Albumin 4.4 g/dL (3.5-5.0); Alkaline Phosphatase 81 U/L (38-126); Anion Gap 7 mmol/L; Blood Urea Nitrogen 15 mg/dL (7-17); Calcium 8.8 mg/dL (8.4-10.2); Carbon Dioxide 23 mmol/L (22-30); Chloride 106 mmol/L (98-107); Creatine Kinase 71 U/L (30-135); Glucose 116 mg/dL (74-99); Magnesium 1.9 mg/dL (1.6-2.3); Non-African American GFR(CKD) >90 (>60 ml/min/1.73 sqM); Sodium 136 mmol/L (137-145); Total Bilirubin 1.4 mg/dL (0.2-1.3); Total Protein 7.4 g/dL (6.3-8.2)
--- NOTE | 2022-04-08 10:21 | XR ---
EXAMINATION TYPE: XR chest 2V DATE OF EXAM: 04/08/2022 COMPARISON: None INDICATION: Cough, pain TECHNIQUE: Frontal and lateral views of the chest are obtained. FINDINGS: The heart size is normal. The pulmonary vasculature is normal. The lungs are clear. IMPRESSION: 1. No acute pulmonary process.
[2022-04-08] MEDS ORDERED: HYDROcodone/APAP 7.5-325MG 1 EACH TAB PO ONE (10:24)
--- NOTE | 2022-04-08 10:47 | ED ---
Extremity Problem HPI - General Chief complaint: Extremity Problem,Nontraumatic Stated complaint: bilat arm pain Source: patient Mode of arrival: ambulatory Limitations: no limitations - History of Present Illness Initial comments: 31-year-old female presents emergency Department with reported bilateral arm pain. States that it starts in her biceps and radiates down into her hands. Started when she awoke this morning. Denies any numbness, tingling or weakness into her hands. No neck pain. No recent trauma or overuse. Denies headache or visual changes. No numbness, tingling or weakness into her legs. She took some Motrin at home without improvement in her symptoms. Does admit to the whole body aching. States she's had lack of sleep due to the young child at home. Is considering the fact that the pain in her arm is from constant lifting her small child. She denies any fevers or chills. No nausea or vomiting. No chest pain or shortness of breath. Denies abdominal pain. Other alleviating, precipitating or modifying factors - Related Data Previous Rx's Medication Instructions Recorded HYDROcodone/APAP 7.5-325MG [[place] 1 tab PO Q6HR PRN 3 Days #12 tab 04/08/22 7.5-325] Allergies Allergy/AdvReac Type Severity Reaction Status Date / Time No Known Allergies Allergy Verified 04/08/22 09:47 Review of Systems ROS Statement: Those systems with pertinent positive or pertinent negative responses have been documented in the HPI. ROS Other: All systems not noted in ROS Statement are negative. Past Medical History Past Medical History: No Reported History History of Any Multi-Drug Resistant Organisms: None Reported Past Surgical History: No Surgical Hx Reported Additional Past Surgical History / Comment(s): jaw surgery Past Anesthesia/Blood Transfusion Reactions: No Reported Reaction Past Psychological History: Anxiety, Depression Smoking Status: Never smoker Past Alcohol Use History: None Reported Past Drug Use History: Marijuana - Past Family History Mother Family Medical History: Cancer (Breast cancer) General Exam Limitations: no limitations General appearance: alert, in no apparent distress Head exam: Present: atraumatic, normocephalic, normal inspection Eye exam: Present: normal appearance, PERRL, EOMI. Absent: scleral icterus, conjunctival injection, periorbital swelling ENT exam: Present: normal exam, mucous membranes moist Neck exam: Present: normal inspection. Absent: tenderness, meningismus, lymphadenopathy Respiratory exam: Present: normal lung sounds bilaterally. Absent: respiratory distress, wheezes, rales, rhonchi, stridor Cardiovascular Exam: Present: regular rate, normal rhythm, normal heart sounds. Absent: systolic murmur, diastolic murmur, rubs, gallop, clicks GI/Abdominal exam: Present: soft, normal bowel sounds. Absent: distended, tenderness, guarding, rebound, rigid Extremities exam: Present: normal inspection, full ROM, tenderness (to palpation of the bilateral biceps ), normal capillary refill. Absent: pedal edema, joint swelling, calf tenderness Back exam: Present: normal inspection Neurological exam: Present: alert, oriented X3, CN II-XII intact Psychiatric exam: Present: normal affect, normal mood Skin exam: Present: warm, dry, intact, normal color. Absent: rash Course Vital Signs 04/08/22 04/08/22 04/08/22 08:25 09:41 10:55 Temperature 98.4 F Pulse Rate 100 72 72 Respiratory 18 18 18 Rate Blood Pressure 168/93 165/102 146/78 O2 Sat by Pulse 96 97 97 Oximetry Medical Decision Making - Medical Decision Making Upon arrival patient is placed into room 4. A thorough history and physical exam is performed. IV access established laboratory studies were conducted. Patient discomfort chest x-ray. She was given a dose of Toradol for pain con trol. He is requesting stronger the patient is provided with [place]. Upon return results I discussed them with the patient. Discussed diagnosis, differential and treatment options. Patient will be discharged home at this time with medication for pain control. Instructed to follow up with her primary care doctor for further workup of her symptoms. Return to emergency room for any new or worsening symptoms. Patient discharged in stable condition - Lab Data Result diagrams: 04/08/22 09:25 04/08/22 09:25 Lab Results 04/08/22 04/08/22 Range/Units 09:25 09:25 WBC 8.8 (3.8-10.6) k/uL RBC 4.78 (3.80-5.40) m/uL Hgb 14.3 (11.4-16.0) gm/dL Hct 42.3 (34.0-46.0) % MCV 88.6 (80.0-100.0) fL MCH 29.8 (25.0-35.0) pg MCHC 33.7 (31.0-37.0) g/dL RDW 14.1 (11.5-15.5) % Plt Count 306 (150-450) k/uL MPV 7.0 Neutrophils % 73 % Lymphocytes % 17 % Monocytes % 5 % Eosinophils % 2 % Basophils % 1 % Neutrophils # 6.4 (1.3-7.7) k/uL Lymphocytes # 1.5 (1.0-4.8) k/uL Monocytes # 0.5 (0-1.0) k/uL Eosinophils # 0.2 (0-0.7) k/uL Basophils # 0.1 (0-0.2) k/uL Sodium 136 L (137-145) mmol/L Potassium 4.0 (3.5-5.1) mmol/L Chloride 106 (98-107) mmol/L Carbon Dioxide 23 (22-30) mmol/L Anion Gap 7 mmol/L BUN 15 (7-17) mg/dL Creatinine 0.82 (0.52-1.04) mg/dL Est GFR (CKD-EPI)AfAm >90 (>60 ml/min/1.73 sqM) Est GFR (CKD-EPI)NonAf >90 (>60 ml/min/1.73 sqM) Glucose 116 H (74-99) mg/dL Calcium 8.8 (8.4-10.2) mg/dL Magnesium 1.9 (1.6-2.3) mg/dL Total Bilirubin 1.4 H (0.2-1.3) mg/dL AST 22 (14-36) U/L ALT 26 (4-34) U/L Alkaline Phosphatase 81 (38-126) U/L Creatine Kinase 71 (30-135) U/L Total Protein 7.4 (6.3-8.2) g/dL Albumin 4.4 (3.5-5.0) g/dL Disposition Clinical Impression: Bilateral arm pain Disposition: HOME SELF-CARE Condition: Stable Instructions (If sedation given, give patient instructions): Arm Pain (ED) Additional Instructions: Please follow-up with the primary care physician as you may need more of a workup for your symptoms - recommended several however you need to call your insurance. Return to the emergency room for any new or worsening symptoms. Prescriptions: HYDROcodone/APAP 7.5-325MG [[place] 7.5-325] 1 tab PO Q6HR PRN 3 Days #12 tab PRN Reason: Pain Is patient prescribed a controlled substance at d/c from ED?: Yes When asked, does pt state using other controlled substances?: No If prescribed controlled substance>3 days was MAPS reviewed?: Prescribed <3 Days If opioid is for acute pain is fill amount 7 days or less?: Yes Referrals: Juan Jose Ro MD [Primary Care Provider] - 1-2 days Genesis Marin MD [REFERRING] - 1-2 days Alejandrina Dailey MD [STAFF PHYSICIAN] - 1-2 days Michael Tejada MD [STAFF PHYSICIAN] - 1-2 days Donny Nelson MD [STAFF PHYSICIAN] - 1-2 days Time of Disposition: 10:44
[2022-04-08 10:56] VITALS: BP 146/78
== END 2022-04-08 10:56 | disposition home or self-care (01) ==
LOC: EC 08:23
DX: M79.601 Pain in right arm (principal); M79.602 Pain in left arm
CPT/HCPCS: 36415; 80053; 82550; 83735; 85025; 71046; 99284; 96374; J1885

== ENCOUNTER 2022-05-24 23:50 | Inpatient (IN) | payer MEDICAID, OTHER ==
[2022-05-24 23:57] VITALS: RESP 18
--- NOTE | 2022-05-25 00:10 | ED ---
Psych HPI - General Chief Complaint: Psychiatric Symptoms Stated Complaint: Law Enforcement Petition Time Seen by Provider: 05/24/22 23:59 Source: police, RN notes reviewed, old records reviewed Mode of arrival: ambulatory - History of Present Illness MD Complaint: suicidal ideation, feels depressed -: unknown Associated Psychiatric Symptoms: depression, suicidal ideation History of same: Yes Quality: constant Improves With: none Worsens With: none Context: significant life stressor Associated Symptoms: denies other symptoms Treatments Prior to Arrival: placed on mental health hold If Self Harm: admits thoughts of self harm - Related Data Previous Rx's Medication Instructions Recorded HYDROcodone/APAP 7.5-325MG [[place] 1 tab PO Q6HR PRN 3 Days #12 tab 04/08/22 7.5-325] Allergies Allergy/AdvReac Type Severity Reaction Status Date / Time No Known Allergies Allergy Verified 05/24/22 23:57 Review of Systems ROS Statement: Those systems with pertinent positive or pertinent negative responses have been documented in the HPI. ROS Other: All systems not noted in ROS Statement are negative. Past Medical History Past Medical History: No Reported History History of Any Multi-Drug Resistant Organisms: None Reported Past Surgical History: No Surgical Hx Reported Additional Past Surgical History / Comment(s): jaw surgery Past Anesthesia/Blood Transfusion Reactions: No Reported Reaction Past Psychological History: Anxiety, Depression Smoking Status: Never smoker Past Alcohol Use History: None Reported Past Drug Use History: Marijuana - Past Family History Mother Family Medical History: Cancer (Breast cancer) General Exam Limitations: no limitations General appearance: alert, in no apparent distress Head exam: Present: atraumatic, normocephalic, normal inspection Eye exam: Present: normal appearance, PERRL, EOMI. Absent: scleral icterus, conjunctival injection, periorbital swelling ENT exam: Present: normal exam, mucous membranes moist Neck exam: Present: normal inspection. Absent: tenderness, meningismus, lymphadenopathy Respiratory exam: Present: normal lung sounds bilaterally. Absent: respiratory distress, wheezes, rales, rhonchi, stridor Cardiovascular Exam: Present: regular rate, normal rhythm, normal heart sounds. Absent: systolic murmur, diastolic murmur, rubs, gallop, clicks GI/Abdominal exam: Present: soft, normal bowel sounds. Absent: distended, tenderness, guarding, rebound, rigid Extremities exam: Present: normal inspection, full ROM, normal capillary refill. Absent: tenderness, pedal edema, joint swelling, calf tenderness Back exam: Present: normal inspection Neurological exam: Present: alert, oriented X3, CN II-XII intact Psychiatric exam: Present: normal affect, normal mood Skin exam: Present: warm, dry, intact, normal color. Absent: rash Course Vital Signs 05/24/22 23:54 Temperature 98 F Pulse Rate 97 Respiratory 18 Rate Blood Pressure 190/131 O2 Sat by Pulse 100 Oximetry - Reevaluation(s) Reevaluation #1: 05/25/22 03:59 Medical records reviewed Reevaluation #2: 05/25/22 03:59 Medically clear For psychiatric evaluation Disposition Clinical Impression: Suicidal ideation, Depression, Acute anxiety Disposition: TRANSFER TO PSYCH HOSP/UNIT Condition: Fair Is patient prescribed a controlled substance at d/c from ED?: No Referrals: Juan Jose Ro MD [Primary Care Provider] - 1-2 days
[2022-05-25 04:46] LABS: Amphetamine Screen,Urine Not Detected (NotDetected); Barbiturate Screen,Urine Not Detected (NotDetected); Benzodiazepines Screen,Urine Not Detected (NotDetected); Cocaine Screen,Urine Not Detected (NotDetected); Methadone Screen, Urine Not Detected (NotDetected); Opiate Screen,Urine Not Detected (NotDetected); Oxycodone Screen, Urine Not Detected (NotDetected); Phencyclidine Screen,Urine Not Detected (NotDetected); Tricyclic Antidepressant,Urine Not Detected (NotDetected); Urn Cannabinoid Scrn Detected (NotDetected)
[2022-05-25] MEDS ORDERED: MAGNESIUM HYDROXIDE 2,400 MG/10 ML CUP PO PRN (06:04)
[2022-05-25] MEDS ORDERED: MAG HYDROX/AL HYDROX/SIMETH 30 ML CUP PO PRN (06:04)
[2022-05-25] MEDS ORDERED: haloperidoL 5 MG TAB PO PRN (06:08)
[2022-05-25] MEDS ORDERED: HALOPERIDOL LACTATE 5 MG/ML 1 ML VIAL IM PRN (06:09)
[2022-05-25] MEDS ORDERED: LORazepam 1 MG/0.5 ML VIAL IM PRN (06:09)
[2022-05-25 06:22] LABS: Appearance,Urine Clear (Clear); Bilirubin,Urine Negative (Negative); Blood,Urine Negative (Negative); Color,Urine Yellow; Glucose,Urine (UA) Negative (Negative); Ketones,Urine 2+ (Negative); Leukocyte Esterase,Urine Negative (Negative); Nitrite,Urine Negative (Negative); Protein,Urine Trace (Negative); Specific Gravity,Urine 1.022 (1.001-1.035); Urobilinogen,Urine <2.0 mg/dL (<2.0)
[2022-05-25] MEDS ORDERED: ACETAMINOPHEN TAB 325 MG TAB PO PRN (06:56)
[2022-05-25] MEDS: LORazepam 1 MG TAB PO PRN ×2 (06:59→21:15)
[2022-05-25] MEDS ORDERED: SERTRALINE 25 MG TAB PO ONE (21:06)
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
[2022-05-26 08:25] LABS: Basophils # (A) 0.1 k/uL (0-0.2); Basophils % (A) 1 %; Eosinophils # (A) 0.1 k/uL (0-0.7); Eosinophils % (A) 1 %; HCT 43.4 % (34.0-46.0); HGB 14.3 gm/dL (11.4-16.0); Lymphocytes % (A) 23 %; MCH 29.1 pg (25.0-35.0); MCHC 32.9 g/dL (31.0-37.0); MCV 88.5 fL (80.0-100.0); Monocytes # (A) 0.6 k/uL (0-1.0); Monocytes % (A) 7 %; Neutrophils # (A) 5.5 k/uL (1.3-7.7); Neutrophils % (A) 66 %; Platelet Count 380 k/uL (150-450); RBC 4.91 m/uL (3.80-5.40); RDW 13.5 % (11.5-15.5); WBC 8.4 k/uL (3.8-10.6)
[2022-05-26 08:35] LABS: ALT 32 U/L (4-34); AST 30 U/L (14-36); African American GFR (CKD) >90 (>60 ml/min/1.73 sqM); Alkaline Phosphatase 90 U/L (38-126); Anion Gap 9 mmol/L; Blood Urea Nitrogen 12 mg/dL (7-17); Calcium 9.6 mg/dL (8.4-10.2); Carbon Dioxide 27 mmol/L (22-30); Chloride 104 mmol/L (98-107); Glucose 98 mg/dL (74-99); Non-African American GFR(CKD) 86 (>60 ml/min/1.73 sqM); Potassium 4.8 mmol/L (3.5-5.1); Sodium 140 mmol/L (137-145); Total Bilirubin 1.5 mg/dL (0.2-1.3); Total Protein 8.5 g/dL (6.3-8.2)
[2022-05-26] MEDS: SYMBICORT 160-4.5 MCG INHALER (MHU) INHALATION SCH ×2 (09:00→18:56)
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
[2022-05-26] MEDS ORDERED: SERTRALINE 50 MG TAB PO SCH (21:00)
[2022-05-26] MEDS: ESCITALOPRAM 10 MG TAB PO SCH (21:20)
[2022-05-26] MEDS: LORazepam 1 MG TAB PO PRN (21:20)
[2022-05-27 08:48] LABS: LDL Cholesterol,Calculated 141.7 mg/dL (0.0-131.0)
[2022-05-27] MEDS: SYMBICORT 160-4.5 MCG INHALER (MHU) INHALATION SCH ×2 (08:48→20:51)
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
[2022-05-27] MEDS: lamoTRIgine 25 MG TAB PO SCH ×2 (13:01→20:51)
[2022-05-27] MEDS: ESCITALOPRAM 10 MG TAB PO SCH (20:51)
[2022-05-28 06:37] VITALS: BP 155/97; PULSE 67; TEMP 98.3
[2022-05-28] MEDS: SYMBICORT 160-4.5 MCG INHALER (MHU) INHALATION SCH ×2 (09:09→20:42)
[2022-05-28] MEDS: lamoTRIgine 25 MG TAB PO SCH ×2 (09:09→20:42)
[2022-05-28] MEDS ORDERED: traZODone HCL 50 MG TAB PO PRN (10:01)
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
[2022-05-28] MEDS: ESCITALOPRAM 10 MG TAB PO SCH (20:42)
[2022-05-29] MEDS: lamoTRIgine 25 MG TAB PO SCH (09:18)
[2022-05-29] MEDS: SYMBICORT 160-4.5 MCG INHALER (MHU) INHALATION SCH (09:19)
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
[2022-05-29] MEDS ORDERED: traZODone HCL 100 MG TAB PO SCH (21:00)
== END 2022-05-29 12:11 | disposition home or self-care (01) | DRG 885 ==
LOC: EC 23:50 → 3MHU 05-25 06:01
PROVIDERS: ADMIT Psychiatry & Neurology Psychiatry; ATTEND Psychiatry & Neurology Psychiatry
DX: F33.1 Major depressive disorder, recurrent, moderate (principal); R45.851 Suicidal ideations; S01.81XA Laceration without foreign body of other part of head, initial encounter; S61.512A Laceration without foreign body of left wrist, initial encounter; X78.1XXA Intentional self-harm by knife, initial encounter; Z20.822 Contact with and (suspected) exposure to COVID-19; F41.9 Anxiety disorder, unspecified; Z63.72 Alcoholism and drug addiction in family; G47.00 Insomnia, unspecified; R03.0 Elevated blood-pressure reading, without diagnosis of hypertension; R05.3 Chronic cough; E66.9 Obesity, unspecified; Z68.32 Body mass index [BMI] 32.0-32.9, adult; Z62.810 Personal history of physical and sexual abuse in childhood; Z62.811 Personal history of psychological abuse in childhood; Y92.039 Unspecified place in apartment as the place of occurrence of the external cause; W22.09XA Striking against other stationary object, initial encounter; Z71.51 Drug abuse counseling and surveillance of drug abuser; Z71.41 Alcohol abuse counseling and surveillance of alcoholic; Z80.3 Family history of malignant neoplasm of breast; Z81.1 Family history of alcohol abuse and dependence; Z82.49 Family history of ischemic heart disease and other diseases of the circulatory system
CPT/HCPCS: 80053; 80061; 80306; 81003; 81025; 82075; 83036; 84443; 85025; 87635; 99285

== ENCOUNTER 2022-10-29 10:06 | Emergency (ER) | payer OTHER ==
[2022-10-29 10:21] VITALS: TEMP 98.2
--- NOTE | 2022-10-29 10:51 | ED ---
General Adult HPI - General Chief complaint: Chest Pain Stated complaint: arm pain, chest pain Time Seen by Provider: 10/29/22 10:30 Source: patient Mode of arrival: ambulatory Limitations: no limitations - History of Present Illness Initial comments: Dictation was produced using [employer] dictation software. please excuse any grammatical, word or spelling errors. Chief Complaint: 32-year-old female presents to the emergency department forearm pain, chest pain and abdominal pain History of Present Illness: Patient's 32-year-old female with past medical history of hypertension. She states since last night she's been having right u pper extremity pain. States that the pain is an ache that is constant and localized to the inner aspect of the arm. Causes pain although he down the arm. Denies any numbness and paresthesias. Patient also complains of some chest pain. She states it is sharp and substernal. She also has left upper abdominal pain. No nausea vomiting or diarrhea. Patient denies any fever or constitutional symptoms. The ROS documented in this emergency department record has been reviewed and confirmed by me. Those systems with pertinent positive or negative responses have been documented in the HPI. All other systems are other negative and/or noncontributory. PHYSICAL EXAM: General Impression: Alert and oriented x3, not in acute distress HEENT: Normocephalic atraumatic, extra-ocular movements intact, pupils equal and reactive to light bilaterally, mucous membranes moist. Cardiovascular: Heart regular rate and rhythm Chest: Able to complete full sentences, no retractions, no tachypnea Abdomen: abdomen soft, non-tender, non-distended, no organomegaly Musculoskeletal: Pulses present and equal in all extremities, no peripheral edema Right upper extremity: Nonedematous, nonswollen nonindurated, reported palpatory tenderness along the inner aspect of the proximal right upper extremity Motor: no focal deficits noted Neurological: CN II-XII grossly intact, no focal motor or sensory deficits noted Skin: Intact with no visualized rashes Psych: Normal affect and mood ED course: 32-year-old well-appearing female no significant comorbidities presents to emergency department for multiple complaints. Her complaints include right upper extremity pain, chest pain and abdominal pain. Signs upon arrival are within acceptable limits. EKG is unremarkable. Physical examination is benign. Nursing notes and chart review was performed EKG interpreted by me: Ventricular rate 69, sinus rhythm,. Interval 177, QRS 99, QTc 43. No DC prolongation, no QTC prolongation, no ST or T-wave changes n oted. Overall, this EKG is unremarkable Laboratory evaluation obtained. CBC, metabolic panel, abdominal labs are negative. Acute abdominal series with chest x-ray is negative. Doppler study of the right upper extremity is unremarkable. Patient observed in emergency department for 2 hours. Reevaluated at bedside a total 5 PM finally stable medical condition. Patient be discharged. - Related Data Previous Rx's Medication Instructions Recorded Budesonide-Formot 160-4.5 Mcg 2 puff INHALATION BID #1 each 05/29/22 [Symbicort 160-4.5 Mcg Inhaler] Escitalopram [Lexapro] 10 mg PO HS 30 Days tab 05/29/22 lamoTRIgine [LaMICtal] 25 mg PO BID 30 Days tab 05/29/22 traZODone HCL 150 mg PO HS 30 Days tablet 05/29/22 Allergies Allergy/AdvReac Type Severity Reaction Status Date / Time No Known Allergies Allergy Verified 10/29/22 10:20 Review of Systems ROS Statement: Those systems with pertinent positive or pertinent negative responses have been documented in the HPI. ROS Other: All systems not noted in ROS Statement are negative. Past Medical History Past Medical History: Hypertension History of Any Multi-Drug Resistant Organisms: None Reported Past Surgical History: No Surgical Hx Reported Additional Past Surgical History / Comment(s): jaw surgery Past Anesthesia/Blood Transfusion Reactions: No Reported Reaction Past Psychological History: Anxiety, Depression Smoking Status: Never smoker Past Alcohol Use History: None Reported Past Drug Use History: Marijuana - Past Family History Mother Family Medical History: Cancer Father Family Medical History: Hypertension General Exam Limitations: no limitations Course Vital Signs 10/29/22 10/29/22 10:19 11:16 Temperature 98.2 F Pulse Rate 67 103 H Respiratory 20 16 Rate Blood Pressure 155/101 146/103 O2 Sat by Pulse 97 96 Oximetry Medical Decision Making - Lab Data Result diagrams: 10/29/22 10:58 10/29/22 10:58 Lab Results 10/29/22 10/29/22 Range/Units 10:58 10:58 WBC 6.2 (3.8-10.6) k/uL RBC 4.66 (3.80-5.40) m/uL Hgb 14.0 (11.4-16.0) gm/dL Hct 39.8 (34.0-46.0) % MCV 85.4 (80.0-100.0) fL MCH 30.0 (25.0-35.0) pg MCHC 35.1 (31.0-37.0) g/dL RDW 13.1 (11.5-15.5) % Plt Count 307 (150-450) k/uL MPV 7.3 Neutrophils % 62 % Lymphocytes % 25 % Monocytes % 6 % Eosinophils % 4 % Basophils % 1 % Neutrophils # 3.8 (1.3-7.7) k/uL Lymphocytes # 1.6 (1.0-4.8) k/uL Monocytes # 0.4 (0-1.0) k/uL Eosinophils # 0.2 (0-0.7) k/uL Basophils # 0.1 (0-0.2) k/uL Sodium 137 (137-145) mmol/L Potassium 3.9 (3.5-5.1) mmol/L Chloride 109 H (98-107) mmol/L Carbon Dioxide 21 L (22-30) mmol/L Anion Gap 7 mmol/L BUN 12 (7-17) mg/dL Creatinine 0.62 (0.52-1.04) mg/dL Est GFR (CKD-EPI)AfAm >90 (>60 ml/min/1.73 sqM) Est GFR (CKD-EPI)NonAf >90 (>60 ml/min/1.73 sqM) Glucose 100 H (74-99) mg/dL Calcium 8.6 (8.4-10.2) mg/dL Total Bilirubin 0.7 (0.2-1.3) mg/dL AST 22 (14-36) U/L ALT 26 (4-34) U/L Alkaline Phosphatase 79 (38-126) U/L Total Protein 7.3 (6.3-8.2) g/dL Albumin 4.3 (3.5-5.0) g/dL Lipase 81 (23-300) U/L Disposition Clinical Impression: Arm pain Disposition: HOME SELF-CARE Condition: Good Instructions (If sedation given, give patient instructions): Ibuprofen (By mouth) Is patient prescribed a controlled substance at d/c from ED?: No Referrals: None,Stated [Primary Care Provider] - 1-2 days Time of Disposition: 12:03
[2022-10-29 11:11] LABS: Basophils # (A) 0.1 k/uL (0-0.2); Basophils % (A) 1 %; Eosinophils # (A) 0.2 k/uL (0-0.7); Eosinophils % (A) 4 %; HCT 39.8 % (34.0-46.0); Lymphocytes # (A) 1.6 k/uL (1.0-4.8); Lymphocytes % (A) 25 %; MCHC 35.1 g/dL (31.0-37.0); MCV 85.4 fL (80.0-100.0); Mean Platelet Volume 7.3; Monocytes # (A) 0.4 k/uL (0-1.0); Monocytes % (A) 6 %; Neutrophils # (A) 3.8 k/uL (1.3-7.7); Neutrophils % (A) 62 %; Platelet Count 307 k/uL (150-450); RBC 4.66 m/uL (3.80-5.40); RDW 13.1 % (11.5-15.5); WBC 6.2 k/uL (3.8-10.6)
--- NOTE | 2022-10-29 11:22 | XR ---
A yellow EXAMINATION TYPE: XR abdomen acute w cxr DATE OF EXAM: 10/29/2022 COMPARISON: NONE HISTORY: Pain TECHNIQUE: Single view of the chest and 2 views of the abdomen are submitted. FINDINGS: Single view of the chest fails demonstrate evidence for acute pulmonary disease. There is no evidence for pneumoperitoneum. The bowel gas pattern is unremarkable as there is air throughout nondilated small and large bowel. No sizeable air fluid levels.No mass effects are seen. No unusual calcifications. IMPRESSION: 1. Unremarkable study.
[2022-10-29 11:35] LABS: ALT 26 U/L (4-34); AST 22 U/L (14-36); African American GFR (CKD) >90 (>60 ml/min/1.73 sqM); Albumin 4.3 g/dL (3.5-5.0); Alkaline Phosphatase 79 U/L (38-126); Anion Gap 7 mmol/L; Blood Urea Nitrogen 12 mg/dL (7-17); Calcium 8.6 mg/dL (8.4-10.2); Carbon Dioxide 21 mmol/L (22-30); Chloride 109 mmol/L (98-107); Glucose 100 mg/dL (74-99); Lipase 81 U/L (23-300); Non-African American GFR(CKD) >90 (>60 ml/min/1.73 sqM); Potassium 3.9 mmol/L (3.5-5.1); Sodium 137 mmol/L (137-145); Total Bilirubin 0.7 mg/dL (0.2-1.3); Total Protein 7.3 g/dL (6.3-8.2)
--- NOTE | 2022-10-29 11:46 | US ---
EXAMINATION TYPE: US venous doppler duplex UE RT DATE OF EXAM: 10/29/2022 COMPARISON: NONE CLINICAL HISTORY: Right arm pain SIDE PERFORMED: Right Right Arm: Negative for DVT IMPRESSION: No evidence for DVT at this time.
[2022-10-29 12:17] VITALS: BP 154/90; PULSE 75; RESP 18
== END 2022-10-29 12:15 | disposition home or self-care (01) ==
LOC: EC 10:06
DX: M79.631 Pain in right forearm (principal); R07.2 Precordial pain; I10 Essential (primary) hypertension; F41.9 Anxiety disorder, unspecified; F32.A Depression, unspecified; F12.90 Cannabis use, unspecified, uncomplicated
CPT/HCPCS: 36415; 74022; 80053; 83690; 85025; 93005; 99285

== ENCOUNTER 2023-02-17 20:38 | Emergency (ER) | payer OTHER ==
[2023-02-17 20:56] VITALS: BP 126/78; PULSE 74; RESP 18; TEMP 97.6
--- NOTE | 2023-02-17 21:17 | XR ---
EXAMINATION TYPE: XR knee complete LT DATE OF EXAM: 02/17/2023 CLINICAL HISTORY: pain TECHNIQUE: Three views of the left knee are obtained. COMPARISON: None. FINDINGS: There is no acute fracture/dislocation. The tri-compartment joint spaces appear within no rmal limits. Mild prepatellar soft tissue swelling. Tiny punctate radiopaque density may reflect smal l foreign body. Correlate clinically. IMPRESSION: There is no acute fracture or dislocation ICD 10 NO FRACTURE, INITIAL EVALUATION
--- NOTE | 2023-02-17 22:16 | ED ---
General Adult HPI - General Chief complaint: Fall Stated complaint: fall,knee pain,poss head injury Time Seen by Provider: 02/17/23 22:16 Source: patient, RN notes reviewed Mode of arrival: ambulatory - History of Present Illness Initial comments: 32-year-old female with no significant past medical history presents to the emergency department with a chief complaint of fall. Patient reports that she fell off her porch onto her left knee. She does report hitting her head however she denies any loss of consciousness. Denies any anticoagulant use. Vital signs stable upon initial evaluation. Patient eloped prior to completion of care and room assignment AGAINST MEDICAL ADVICE. - Related Data Previous Rx's Medication Instructions Recorded Budesonide-Formot 160-4.5 Mcg 2 puff INHALATION BID #1 each 05/29/22 [Symbicort 160-4.5 Mcg Inhaler] Escitalopram [Lexapro] 10 mg PO HS 30 Days tab 05/29/22 lamoTRIgine [LaMICtal] 25 mg PO BID 30 Days tab 05/29/22 traZODone HCL 150 mg PO HS 30 Days tablet 05/29/22 Allergies Allergy/AdvReac Type Severity Reaction Status Date / Time No Known Allergies Allergy Verified 02/17/23 20:56 Review of Systems ROS Statement: Those systems with pertinent positive or pertinent negative responses have been documented in the HPI. ROS Other: All systems not noted in ROS Statement are negative. Past Medical History Past Medical History: Hypertension History of Any Multi-Drug Resistant Organisms: None Reported Past Surgical History: No Surgical Hx Reported Additional Past Surgical History / Comment(s): jaw surgery Past Anesthesia/Blood Transfusion Reactions: No Reported Reaction Past Psychological History: Anxiety, Depression Smoking Status: Never smoker Past Alcohol Use History: None Reported Past Drug Use History: Marijuana - Past Family History Mother Family Medical History: Cancer Father Family Medical History: Hypertension General Exam - General Exam Comments Initial Comments: Visual Physical Exam Vital signs reviewed General: Well-appearing, nontoxic, no acute distress. Head: Normocephalic, atraumatic Eyes: PERRLA, EOMI ENT: Airway patent Chest: Nonlabored breathing Skin: No visual rash, normal skin tone Neuro: Alert and oriented 3 Musculoskeletal: No gross abnormalities Course Vital Signs 02/17/23 20:53 Temperature 97.6 F Pulse Rate 74 Respiratory 18 Rate Blood Pressure 126/78 O2 Sat by Pulse 98 Oximetry Disposition Clinical Impression: Fall Disposition: Left Against Medical Advice Condition: Undetermined Is patient prescribed a controlled substance at d/c from ED?: No Referrals: None,Stated [Primary Care Provider] - 1-2 days Time of Disposition: 23:41
== END 2023-02-17 22:30 | disposition left against medical advice (07) ==
LOC: EC 20:38
DX: M25.562 Pain in left knee (principal); I10 Essential (primary) hypertension; F12.90 Cannabis use, unspecified, uncomplicated; Z53.29 Procedure and treatment not carried out because of patient's decision for other reasons; W13.0XXA Fall from, out of or through balcony, initial encounter
CPT/HCPCS: 99283

== ENCOUNTER 2024-11-28 10:27 | Emergency (ER) | payer OTHER ==
--- NOTE | 2024-11-28 10:46 | ED ---
URI HPI - General Chief Complaint: Upper Respiratory Infection Stated Complaint: congestion Time Seen by Provider: 11/28/24 10:32 Source: patient, RN notes reviewed Mode of arrival: ambulatory Limitations: no limitations - History of Present Illness Initial Comments: This is a 34-year-old female who presents to the emergency department for URI symptoms. States that she has always had a problem breathing out of her nose, however over the last 2 weeks in particular she has not gotten any airflow through her nose and feels like she cannot breathe. This is particularly bothersome at night. States that her nasal passages are also very painful. She has been on steroids, antibiotics, and nasal sprays for this issue without any relief. Unsure what nasal sprays she has been on. She does also report a productive cough. Denies any fevers/chills or sick contacts. She has only gone to urgent cares at this point, she has not seen an ENT or her primary care provider. MD Complaint: cough, nasal congestion - Related Data Previous Rx's Medication Instructions Recorded Levofloxacin [Levaquin] 750 mg PO DAILY 7 Days #7 tab 11/28/24 Allergies Allergy/AdvReac Type Severity Reaction Status Date / Time No Known Allergies Allergy Verified 11/28/24 10:32 Review of Systems ROS Statement: Those systems with pertinent positive or pertinent negative responses have been documented in the HPI. ROS Other: All systems not noted in ROS Statement are negative. Past Medical History Past Medical History: Hypertension History of Any Multi-Drug Resistant Organisms: None Reported Past Surgical History: No Surgical Hx Reported Additional Past Surgical History / Comment(s): jaw surgery Past Anesthesia/Blood Transfusion Reactions: No Reported Reaction Past Psychological History: Anxiety, Depression Smoking Status: Never smoker Past Alcohol Use History: None Reported Past Drug Use History: Marijuana - Past Family History Mother Family Medical History: Cancer Father Family Medical History: Hypertension General Exam Limitations: no limitations General appearance: alert, in no apparent distress Head exam: Present: atraumatic, normocephalic, normal inspection Respiratory exam: Present: normal lung sounds bilaterally. Absent: respiratory distress, wheezes, rales, rhonchi, stridor Cardiovascular Exam: Present: regular rate, normal rhythm, normal heart sounds. Absent: systolic murmur, diastolic murmur, rubs, gallop, clicks Neurological exam: Present: alert, oriented X3, CN II-XII intact Psychiatric exam: Present: normal affect, normal mood Skin exam: Present: warm, dry, intact, normal color. Absent: rash Course Vital Signs 11/28/24 10:29 Temperature 98.2 F Pulse Rate 109 H Respiratory 18 Rate Blood Pressure 152/98 O2 Sat by Pulse 98 Oximetry Medical Decision Making - Medical Decision Making This is a 34-year-old female who presents to the emergency department for coughing and congestion. Was pt. sent in by a medical professional or institution? @ -No Did you speak to anyone other than the patient for history? @ -No Did you review nursing and triage notes? @ -Yes, and I agree, it is accurate with regards to the patient's symptoms. Were old charts reviewed? @ -No Differential Diagnosis? @ -Differential Cough: Influenza, Covid, RSV, croup, allergic rhinitis, GERD, pneumonia, bronchitis, COPD, viral pharyngitis, streptococcal pharyngitis, this is not meant to be an all-inclusive list. EKG interpreted by me (3pts min.)? @ -Not obtained X-rays interpreted by me (1pt min.)? @ -Chest x-ray obtained, my interpretation identifies no localized consolidations or infiltrates. X-ray of the sinuses obtained. My interpretation identifies haziness over the left frontal sinus. CT interpreted by me (1pt min.)? @ -Not obtained U/S interpreted by me (1pt. min.)? @ -Not obtained What testing was considered but not performed? (CT, X-rays, U/S, labs)? Why? @ -None What meds were considered but not given? Why? @ -None Did you discuss the management of the patient with other professionals? @ -No Did you reconcile home meds? @ -No Was smoking cessation discussed for >3mins.? @ -No Was critical care preformed (if so, how long)? @ -No Were there social determinants of health that impacted care today? How? (Homelessness, low income, unemployed, alcoholism, drug addiction, transportation, low edu. Level, literacy, decrease access to med. care, shelter, rehab)? @ -No Was there de-escalation of care discussed even if they declined? (Discuss DNR or withdrawal of care, Hospice)? @ -No What co-morbidities impacted this encounter? (DM, HTN, Smoking, COPD, CAD, Cancer, CVA, Hep., AIDS, mental health diagnosis, sleep apnea, morbid obesity)? @ -None Was patient admitted / discharged? @ -Discharged. COVID, influenza, and RSV testing negative. Chest x-ray reveals no acute process. X-ray of the sinuses demonstrates haziness to the expected area of the left frontal sinus which could be due to congenital hypoplasia versus opacified left frontal sinus. Patient likely has a severe case of sinusitis. She has maxillary and frontal sinus tenderness and other URI symptoms. She had already been on amoxicillin without relief. She was subsequently put on Levaquin instead. She was sent home with oxymetazoline nasal spray for more immediate symptomatic relief. Advised she avoid using this for more than 3 days due to the risk of dependence. We also discussed [id number] oral decongestants. She was given information for follow-up with ENT. Advised she contact them for further evaluation and definitive management given how long this has been an issue for her. Patient discharged home in stable condition. Case discussed with ED attending Dr. Cruz. Return precautions reviewed in depth, the patient is instructed to return to the emergency department with any new, worsening, or concerning symptoms. Patient verbalized understanding. Undiagnosed new problem with uncertain prognosis? @ -None Drug Therapy requiring intensive monitoring for toxicity (Heparin, Nitro, Insulin, Cardizem)? @ -None Were any procedures done? @ -None Diagnosis/symptom? @ -Left frontal sinus opacification Acute, or Chronic, or Acute on Chronic? @ -Acute Uncomplicated (without systemic symptoms) or Complicated (systemic symptoms)? @ -Uncomplicated Side effects of treatment? @ -None Exacerbation, Progression, or Severe Exacerbation] @ -Not applicable Poses a threat to life or bodily function? @ -No - Lab Data Lab Results 11/28/24 Range/Units 10:33 Influenza Type A (PCR) Not Detected (Not Detectd) Influenza Type B (PCR) Not Detected (Not Detectd) RSV (PCR) Not Detected (Not Detectd) SARS-CoV-2 (PCR) Not Detected (Not Detectd) - Radiology Data Radiology results: report reviewed, image reviewed Disposition Clinical Impression: Opacification of frontal sinus Disposition: HOME SELF-CARE Instructions (If sedation given, give patient instructions): Sinusitis (ED) Additional Instructions: Return to the emergency department with any new, worsening, or concerning symptoms. Take the antibiotic as prescribed for 7 days. Try the oxymetazoline nasal spray provided to help with the congestion. If that is not effective you can try using the phenylephrine nasal spray provided. You could also try taking an cqfz-vid-phqmego decongestant. Contact the ENT offices listed below for further evaluation of your ongoing symptoms. Prescriptions: Levofloxacin [Levaquin] 750 mg PO DAILY 7 Days #7 tab Is patient prescribed a controlled substance at d/c from ED?: No Referrals: None,Stated [Primary Care Provider] - 1-2 days Angel Abbott MD [STAFF PHYSICIAN] - 1-2 days Adonis Burrell MD [STAFF PHYSICIAN] - 1-2 days Time of Disposition: 12:07
[2024-11-28] MEDS: PSEUDOEPHEDRINE 30 MG TAB PO STA (11:09)
[2024-11-28] MEDS: OXYMETAZOLINE 0.05% NASL SPRAY 1 SPRAY BOTTLE NASAL STA (11:09)
--- NOTE | 2024-11-28 11:09 | XR ---
EXAMINATION TYPE: XR sinus DATE OF EXAM: 11/28/2024 11:03 AM COMPARISON: None CLINICAL INDICATION: Female, 34 years old with history of Sinus pain, congestion; [facility] TECHNIQUE: 4 views the sinuses frontal, lateral and Moore. FINDINGS: Radiographic evaluation of the orbits fail to demonstrate evidence of an orbital fracture. The adjace nt paranasal sinuses are well aerated an without evidence of intra-cavitary fluid accumulation. The n joanne bridge appears intact. The mandible appears intact. Mastoid air cells are well aerated. The frontal sinus is well-pneumatized on the right however the left is not currently visualized. And maxillary sinuses are well aerated. Fixation hardware of the mandible is intact. If a radiographically occult fracture is clinically suspected, thin-section CT scan of the orbits is a more sensitive study to exclude subtle maxillofacial traumatic injuries. IMPRESSION: Haziness to expected area of the left frontal sinus which could be due to congenital hypoplasia aplas tic versus opacified left frontal sinus. Consider CT sinus for complete evaluation of the sinuses. [facility], , 11/28/2024 11:06 AM
--- NOTE | 2024-11-28 11:22 | XR ---
EXAMINATION TYPE: XR chest 2V DATE OF EXAM: 11/28/2024 11:03 AM COMPARISON: Chest radiographs from 04/08/2022 CLINICAL INDICATION: Female, 34 years old with history of Cough, congestion; TECHNIQUE: XR chest 2V Frontal and lateral views of the chest. FINDINGS: Lungs/Pleura: There is no evidence of pleural effusion, focal consolidation, or pneumothorax. Pulmonary vascularity: Unremarkable. Heart/mediastinum: Cardiomediastinal silhouette is unremarkable. Musculoskeletal: No acute osseous pathology. IMPRESSION: No acute cardiopulmonary disease/process. [facility], , 11/28/2024 11:20 AM
[2024-11-28 11:27] LABS: Influenza A Not Detected (Not Detectd); Influenza B Not Detected (Not Detectd); RSV Not Detected (Not Detectd)
[2024-11-28] MEDS: PHENYLEPHRINE 0.25% NASAL SPRA 1 SPRAY/ML NASAL STA (12:20)
[2024-11-28 14:02] VITALS: BP 138/90; PULSE 106; RESP 20; TEMP 97.9
== END 2024-11-28 12:40 | disposition home or self-care (01) ==
LOC: EC 10:27
DX: J34.89 Other specified disorders of nose and nasal sinuses (principal)
CPT/HCPCS: 70220; 71046; 87636; 99283

== ENCOUNTER 2025-02-27 12:40 | Emergency (ER) | payer OTHER ==
[2025-02-27 12:46] VITALS: TEMP 98.4
--- NOTE | 2025-02-27 13:00 | ED ---
General Adult HPI - General Chief complaint: Nausea/Vomiting/Diarrhea Stated complaint: Abd pain, vomiting, Diarrhea Time Seen by Provider: 02/27/25 12:47 Source: patient, RN notes reviewed Mode of arrival: ambulatory Limitations: no limitations - History of Present Illness Initial comments: 34-year-old female presents to the emergency department for evaluation of nausea, vomiting, diarrhea. Patient states that symptoms have been going on for 5 days. She does note others in the household with similar symptoms. Patient states that her son and her had the symptoms only lasting 2 days. She is concerned because her symptoms have been going on for 5 days. Denies any known fever. She does admit to some diffuse abdominal discomfort. Denies any prior abdominal surgeries. She does report a history of hypertension which she is not currently being treated for. - Related Data Previous Rx's Medication Instructions Recorded Levofloxacin [Levaquin] 750 mg PO DAILY 7 Days #7 tab 11/28/24 Allergies Allergy/AdvReac Type Severity Reaction Status Date / Time No Known Allergies Allergy Verified 02/27/25 12:46 Review of Systems ROS Statement: Those systems with pertinent positive or pertinent negative responses have been documented in the HPI. ROS Other: All systems not noted in ROS Statement are negative. Past Medical History Past Medical History: Hypertension History of Any Multi-Drug Resistant Organisms: None Reported Past Surgical History: No Surgical Hx Reported Additional Past Surgical History / Comment(s): jaw surgery Past Anesthesia/Blood Transfusion Reactions: No Reported Reaction Past Psychological History: Anxiety, Depression Smoking Status: Never smoker Past Alcohol Use History: None Reported Past Drug Use History: Marijuana - Past Family History Mother Family Medical History: Cancer Father Family Medical History: Hypertension General Exam Limitations: no limitations General appearance: alert, in no apparent distress Head exam: Present: atraumatic, normocephalic, normal inspection Eye exam: Present: normal appearance, PERRL, EOMI. Absent: scleral icterus, conjunctival injection, periorbital swelling ENT exam: Present: normal exam, mucous membranes moist Neck exam: Present: normal inspection. Absent: tenderness, meningismus, lymphadenopathy Respiratory exam: Present: normal lung sounds bilaterally. Absent: respiratory distress, wheezes, rales, rhonchi, stridor Cardiovascular Exam: Present: regular rate, normal rhythm, normal heart sounds. Absent: systolic murmur, diastolic murmur, rubs, gallop, clicks GI/Abdominal exam: Present: soft, hyperactive bowel sounds. Absent: distended, tenderness, guarding, rebound, rigid Extremities exam: Present: normal inspection, full ROM, normal capillary refill. Absent: tenderness, pedal edema, joint swelling, calf tenderness Back exam: Present: normal inspection Neurological exam: Present: alert, oriented X3 Psychiatric exam: Present: normal affect, normal mood Skin exam: Present: warm, dry, intact, normal color. Absent: rash Course Vital Signs 02/27/25 02/27/25 12:43 14:23 Temperature 98.4 F 98.4 F Pulse Rate 83 75 Respiratory 18 17 Rate Blood Pressure 157/111 130/87 O2 Sat by Pulse 97 97 Oximetry Medical Decision Making - Medical Decision Making Was pt. sent in by a medical professional or institution (, PA, QUALITY ASSURANCE SUPERVISOR, urgent care, hospital, or long term...) When possible be specific @ -No Did you speak to anyone other than the patient for history (EMS, parent, family, police, friend...)? What history was obtained from this source @ -No Did you review nursing and triage notes (agree or disagree)? Why? @ -I reviewed and agree with nursing and triage notes Were old charts reviewed (outside hosp., previous admission, EMS record, old EKG, old radiological studies, urgent care reports/EKG's, long term records)? Report findings @ -No old charts were reviewed Differential Diagnosis (chest pain, altered mental status, abdominal pain women, abdominal pain men, vaginal bleeding, weakness, fever, dyspnea, syncope, headache, dizziness, GI bleed, back pain, seizure, CVA, palpatations, mental health, musculoskeletal)? @ -Gastroenteritis, cholecystitis, UTI, this list is not all inclusive EKG interpreted by me (3pts min.). @ -None X-rays interpreted by me (1pt min.). @ -None done CT interpreted by me (1pt min.). @ -None done U/S interpreted by me (1pt. min.). @ -None done What testing was considered but not performed or refused? (CT, X-rays, U/S, labs)? Why? @ -None What meds were considered but not given or refused? Why? @ -None Did you discuss the management of the patient with other professionals (professionals i.e. , PA, QUALITY ASSURANCE SUPERVISOR, lab, RT, psych nurse, social contact worker, street commissioner, teacher, financial services officer, caser up)? Give summary @ -No Was smoking cessation discussed for >3mins.? @ -No Was critical care preformed (if so, how long)? @ -No Were there social determinants of health that impacted care today? How? (Homelessness, low income, unemployed, alcoholism, drug addiction, transportation, low edu. Level, literacy, decrease access to med. care, residential, rehab)? @ -No Was there de-escalation of care discussed even if they declined (Discuss DNR or withdrawal of care, Hospice)? DNR status @ -No What co-morbidities impacted this encounter? (DM, HTN, Smoking, COPD, CAD, Cancer, CVA, ARF, Chemo, Hep., AIDS, mental health diagnosis, sleep apnea, morbid obesity)? @ -None Was patient admitted / discharged? Hospital course, mention meds given and route, prescriptions, significant lab abnormalities, going to OR and other pertinent info. @ -Discharge. Patient presented the emergency department for evaluation of nausea, vomiting, diarrhea.Laboratory studies obtained revealing no significant leukocytosis, hemoglobin 14.1; CMP notes nonactionable UA shows no evidence of infectious process, negative urine hCG. Patient was provided IV fluids and medication for nausea control in the emergency department. She is feeling improved and will be discharged home. She is understanding agreeable plan. Patient stable at time of discharge. Case discussed with Dr. Canas Undiagnosed new problem with uncertain prognosis? @ -No Drug Therapy requiring intensive monitoring for toxicity (Heparin, Nitro, Insulin, Cardizem)? @ -No Were any procedures done? @ -No Diagnosis/symptom? @ -Gastroenteritis Acute, or Chronic, or Acute on Chronic? @ -Acute Uncomplicated (without systemic symptoms) or Complicated (systemic symptoms)? @ -Uncomplicated Side effects of treatment? @ -No Exacerbation, Progression, or Severe Exacerbation? @ -No Poses a threat to life or bodily function? How? (Chest pain, [place], [place], pneumonia, PE, COPD, DKA, ARF, appy, cholecystitis, CVA, Diverticulitis, Homicidal, Suicidal, threat to staff... and all critical care pts) @ -No - Lab Data Result diagrams: 02/27/25 13:18 02/27/25 13:18 Lab Results 02/27/25 02/27/25 02/27/25 Range/Units 13:18 13:18 14:15 WBC 8.17 (4.50-10.00) 10*3/uL RBC 4.74 (4.10-5.20) 10*6/uL Hgb 14.1 (12.0-15.0) g/dL Hct 41.1 (37.2-46.3) % MCV 86.7 (80.0-97.0) fL MCH 29.7 (27.0-32.0) pg MCHC 34.3 (32.0-37.0) g/dL Plt Count 296 (140-440) 10*3/uL MPV 9.4 L (9.5-12.2) fL Immature Gran % (Auto) 0.2 % Neutrophils % 72.2 % Lymphocytes % 19.8 % Monocytes % 6.2 % Eosinophils % 1.0 % Basophils % 0.6 % Immature Gran # 0.02 (0.00-0.04) 10*3/uL Neutrophils # 5.89 (1.80-7.70) 10*3/uL Lymphocytes # 1.62 (0.90-5.00) 10*3/uL Monocytes # 0.51 (0.20-1.00) 10*3/uL Eosinophils # 0.08 (0.04-0.35) 10*3/uL Basophils # 0.05 (0.00-0.10) 10*3/uL Sodium 135 L (137-145) mmol/L Potassium 4.0 (3.5-5.1) mmol/L Chloride 102 (98-107) mmol/L Carbon Dioxide 26 (22-30) mmol/L Anion Gap 7 mmol/L BUN 11 (7-17) mg/dL Creatinine 0.61 (0.52-1.04) mg/dL Est GFR (CKD-EPI)AfAm >90 (>60 ml/min/1.73 sqM) Est GFR (CKD-EPI)NonAf >90 (>60 ml/min/1.73 sqM) Glucose 89 (74-99) mg/dL Calcium 9.0 (8.4-10.2) mg/dL Total Bilirubin 0.7 (0.2-1.3) mg/dL AST 23 (14-36) U/L ALT 32 (4-34) U/L Alkaline Phosphatase 80 (38-126) U/L Total Protein 7.6 (6.3-8.2) g/dL Albumin 4.4 (3.5-5.0) g/dL Lipase 83 (23-300) U/L Urine Color Colorless Urine Appearance Clear (Clear) Urine pH 7.0 (5.0-8.0) Ur Specific Vian 1.005 (1.001-1.035) Urine Protein Negative (Negative) Urine Glucose (UA) Negative (Negative) Urine Ketones Negative (Negative) Urine Blood Negative (Negative) Urine Nitrite Negative (Negative) Urine Bilirubin Negative (Negative) Urine Urobilinogen <2.0 (<2.0) mg/dL Ur Leukocyte Esterase Negative (Negative) Urine HCG, Qual (Not Detectd) 02/27/25 Range/Units 14:15 WBC (4.50-10.00) 10*3/uL RBC (4.10-5.20) 10*6/uL Hgb (12.0-15.0) g/dL Hct (37.2-46.3) % MCV (80.0-97.0) fL MCH (27.0-32.0) pg MCHC (32.0-37.0) g/dL Plt Count (140-440) 10*3/uL MPV (9.5-12.2) fL Immature Gran % (Auto) % Neutrophils % % Lymphocytes % % Monocytes % % Eosinophils % % Basophils % % Immature Gran # (0.00-0.04) 10*3/uL Neutrophils # (1.80-7.70) 10*3/uL Lymphocytes # (0.90-5.00) 10*3/uL Monocytes # (0.20-1.00) 10*3/uL Eosinophils # (0.04-0.35) 10*3/uL Basophils # (0.00-0.10) 10*3/uL Sodium (137-145) mmol/L Potassium (3.5-5.1) mmol/L Chloride (98-107) mmol/L Carbon Dioxide (22-30) mmol/L Anion Gap mmol/L BUN (7-17) mg/dL Creatinine (0.52-1.04) mg/dL Est GFR (CKD-EPI)AfAm (>60 ml/min/1.73 sqM) Est GFR (CKD-EPI)NonAf (>60 ml/min/1.73 sqM) Glucose (74-99) mg/dL Calcium (8.4-10.2) mg/dL Total Bilirubin (0.2-1.3) mg/dL AST (14-36) U/L ALT (4-34) U/L Alkaline Phosphatase (38-126) U/L Total Protein (6.3-8.2) g/dL Albumin (3.5-5.0) g/dL Lipase (23-300) U/L Urine Color Urine Appearance (Clear) Urine pH (5.0-8.0) Ur Specific Vian (1.001-1.035) Urine Protein (Negative) Urine Glucose (UA) (Negative) Urine Ketones (Negative) Urine Blood (Negative) Urine Nitrite (Negative) Urine Bilirubin (Negative) Urine Urobilinogen (<2.0) mg/dL Ur Leukocyte Esterase (Negative) Urine HCG, Qual Not Detected (Not Detectd) Disposition Clinical Impression: Nausea and vomiting Disposition: HOME SELF-CARE Condition: Stable Instructions (If sedation given, give patient instructions): Acute Nausea and Vomiting (ED) Additional Instructions: Please follow up with your doctor. Return to the emergency department for new or worsening symptoms. Is patient prescribed a controlled substance at d/c from ED?: No Referrals: None,Stated [Primary Care Provider] - 1-2 days
[2025-02-27] MEDS: ONDANSETRON 4 MG/2 ML VIAL IVP STA (13:15)
[2025-02-27] MEDS: SODIUM CHLORIDE 0.9% 1,000 ML IV ONE (13:15)
[2025-02-27 13:39] LABS: Basophils # (A) 0.05 10*3/uL (0.00-0.10); Basophils % (A) 0.6 %; Eosinophils # (A) 0.08 10*3/uL (0.04-0.35); HCT 41.1 % (37.2-46.3); HGB 14.1 g/dL (12.0-15.0); Lymphocytes # (A) 1.62 10*3/uL (0.90-5.00); Lymphocytes % (A) 19.8 %; MCH 29.7 pg (27.0-32.0); MCHC 34.3 g/dL (32.0-37.0); MCV 86.7 fL (80.0-97.0); Mean Platelet Volume 9.4 fL (9.5-12.2); Monocytes # (A) 0.51 10*3/uL (0.20-1.00); Monocytes % (A) 6.2 %; Neutrophils # (A) 5.89 10*3/uL (1.80-7.70); Neutrophils % (A) 72.2 %; Platelet Count 296 10*3/uL (140-440); RBC 4.74 10*6/uL (4.10-5.20); RDW 13.2 % (11.5-14.5); WBC 8.17 10*3/uL (4.50-10.00)
[2025-02-27 13:51] LABS: ALT 32 U/L (4-34); AST 23 U/L (14-36); African American GFR (CKD) >90 (>60 ml/min/1.73 sqM); Albumin 4.4 g/dL (3.5-5.0); Alkaline Phosphatase 80 U/L (38-126); Anion Gap 7 mmol/L; Blood Urea Nitrogen 11 mg/dL (7-17); Carbon Dioxide 26 mmol/L (22-30); Chloride 102 mmol/L (98-107); Glucose 89 mg/dL (74-99); Lipase 83 U/L (23-300); Non-African American GFR(CKD) >90 (>60 ml/min/1.73 sqM); Sodium 135 mmol/L (137-145); Total Bilirubin 0.7 mg/dL (0.2-1.3); Total Protein 7.6 g/dL (6.3-8.2)
[2025-02-27 14:25] VITALS: BP 130/87; PULSE 75; RESP 17
[2025-02-27 14:28] LABS: Appearance,Urine Clear (Clear); Bilirubin,Urine Negative (Negative); Blood,Urine Negative (Negative); Color,Urine Colorless; Glucose,Urine (UA) Negative (Negative); Ketones,Urine Negative (Negative); Leukocyte Esterase,Urine Negative (Negative); Nitrite,Urine Negative (Negative); Protein,Urine Negative (Negative); Specific Gravity,Urine 1.005 (1.001-1.035); Urobilinogen,Urine <2.0 mg/dL (<2.0)
[2025-02-27] MEDS: KETOROLAC 15 MG/ML 1 ML VIAL IVP STA (14:56)
[2025-02-27] MEDS: ONDANSETRON 4 MG ODT STARTER PACK 2 TAB BTL PO STA (14:57)
== END 2025-02-27 15:08 | disposition home or self-care (01) ==
LOC: EC 12:40
DX: R11.2 Nausea with vomiting, unspecified (principal)
CPT/HCPCS: 36415; 80053; 83690; 85025; 81003; 81025; 99284; 96374; 96375; 96361; J2405; J1885; S0119

== ENCOUNTER 2025-04-18 10:54 | Emergency (ER) | payer OTHER ==
[2025-04-18 11:10] VITALS: TEMP 98.3
--- NOTE | 2025-04-18 11:46 | ED ---
General Adult HPI - General Chief complaint: ENT Stated complaint: Diogenes ear pain Time Seen by Provider: 04/18/25 11:10 Source: patient, RN notes reviewed Mode of arrival: ambulatory Limitations: no limitations - History of Present Illness Initial comments: 35-year-old female presents emergency department complaint of bilateral ear pain, sinus congestion/pressure cough congestion states that she been sick for several weeks patient was placed on azithromycin for an ear infection states that has not improved. She continues to have muffled hearing, ear pain and pressure. - Related Data Previous Rx's Medication Instructions Recorded Levofloxacin [Levaquin] 750 mg PO DAILY 7 Days #7 tab 11/28/24 Amoxic-Pot Clav 875-125Mg 1 tab PO Q12HR #20 tab 04/18/25 [Augmentin 875-125] Fluticasone Nasal Provencal [Flonase 2 spr EA NOSTRIL DAILY #16 gm 04/18/25 Nasal Provencal] predniSONE 50 mg PO DAILY #5 tab 04/18/25 Allergies Allergy/AdvReac Type Severity Reaction Status Date / Time No Known Allergies Allergy Verified 04/18/25 11:10 Review of Systems ROS Statement: Those systems with pertinent positive or pertinent negative responses have been documented in the HPI. ROS Other: All systems not noted in ROS Statement are negative. Past Medical History Past Medical History: Hypertension History of Any Multi-Drug Resistant Organisms: None Reported Past Surgical History: No Surgical Hx Reported Additional Past Surgical History / Comment(s): jaw surgery Past Anesthesia/Blood Transfusion Reactions: No Reported Reaction Past Psychological History: Anxiety, Depression Smoking Status: Never smoker Past Alcohol Use History: None Reported Past Drug Use History: Marijuana - Past Family History Mother Family Medical History: Cancer Father Family Medical History: Hypertension General Exam Limitations: no limitations General appearance: alert, in no apparent distress Head exam: Present: atraumatic, normocephalic, normal inspection Eye exam: Present: normal appearance, PERRL, EOMI. Absent: scleral icterus, conjunctival injection, periorbital swelling ENT exam: Present: normal oropharynx, mucous membranes moist. Absent: normal exam, TM's normal bilaterally (Erythema) Neck exam: Present: normal inspection, full ROM. Absent: tenderness, meningismus, lymphadenopathy Respiratory exam: Present: normal lung sounds bilaterally. Absent: respiratory distress, wheezes, rales, rhonchi, stridor Cardiovascular Exam: Present: regular rate, normal rhythm, normal heart sounds. Absent: systolic murmur, diastolic murmur, rubs, gallop, clicks Course Vital Signs 04/18/25 04/18/25 11:08 12:05 Temperature 98.3 F Pulse Rate 70 80 Respiratory 17 20 Rate Blood Pressure 168/116 168/120 O2 Sat by Pulse 98 98 Oximetry Medical Decision Making - Medical Decision Making Was pt. sent in by a medical professional or institution (, MAURICIO, SWING DRIVER, urgent care, hospital, or [facility]...) When possible be specific @ -No Did you speak to anyone other than the patient for history (EMS, parent, family, police, friend...)? What history was obtained from this source @ -No Did you review nursing and triage notes (agree or disagree)? Why? @ -I reviewed and agree with nursing and triage notes Were old charts reviewed (outside hosp., previous admission, EMS record, old EKG, old radiological studies, urgent care reports/EKG's, [facility] records)? Report findings @ -No old charts were reviewed Differential Diagnosis (chest pain, altered mental status, abdominal pain women, abdominal pain men, vaginal bleeding, weakness, fever, dyspnea, syncope, headache, dizziness, GI bleed, back pain, seizure, CVA, palpatations, mental health, musculoskeletal)? @ -Otitis media otitis externa COVID 19, RSV, influenza, pneumonia, acute bronchitis, URI, this list is not all inclusive EKG interpreted by me (3pts min.). @ -None X-rays interpreted by me (1pt min.). @ -None done CT interpreted by me (1pt min.). @ -None done U/S interpreted by me (1pt. min.). @ -None done What testing was considered but not performed or refused? (CT, X-rays, U/S, labs)? Why? @ -None What meds were considered but not given or refused? Why? @ -None Did you discuss the management of the patient with other professionals (professionals i.e. MAURICIO Cline, SWING DRIVER, lab, RT, psych nurse, clinical social work therapist, glost kiln placer, teacher, conservation enforcement officer, shoe caser)? Give summary @ -No Was smoking cessation discussed for >3mins.? @ -No Was critical care preformed (if so, how long)? @ -No Were there social determinants of health that impacted care today? How? (Homelessness, low income, unemployed, alcoholism, drug addiction, transportation, low edu. Level, literacy, decrease access to med. care, intermediate, rehab)? @ -No Was there de-escalation of care discussed even if they declined (Discuss DNR or withdrawal of care, Hospice)? DNR status @ -No What co-morbidities impacted this encounter? (DM, HTN, Smoking, COPD, CAD, Cancer, CVA, ARF, Chemo, Hep., AIDS, mental health diagnosis, sleep apnea, mo rbid obesity)? @ -None Was patient admitted / discharged? Hospital course, mention meds given and route, prescriptions, significant lab abnormalities, going to OR and other pertinent info. @ -discharged patient has otitis media, eustachian tube dysfunction with fluid noted patient will use Flonase, steroids, antibiotics return for as discussed Undiagnosed new problem with uncertain prognosis? @ -No Drug Therapy requiring intensive monitoring for toxicity (Heparin, Nitro, Insulin, Cardizem)? @ -No Were any procedures done? @ -No Diagnosis/symptom? @ -Otitis media, eustachian tube dysfunction Acute, or Chronic, or Acute on Chronic? @ -Acute Uncomplicated (without systemic symptoms) or Complicated (systemic symptoms)? @ -Uncomplicated Side effects of treatment? @ -No Exacerbation, Progression, or Severe Exacerbation? @ -No Poses a threat to life or bodily function? How? (Chest pain, [place], [place], pneumonia, PE, COPD, DKA, ARF, appy, cholecystitis, CVA, Diverticulitis, Homicidal, Suicidal, threat to staff... and all critical care pts) @ -No Disposition Clinical Impression: Eustachian tube dysfunction, Otitis media Disposition: HOME SELF-CARE Condition: Stable Instructions (If sedation given, give patient instructions): Earache (ED) Additional Instructions: Please return to the Emergency Department if symptoms worsen or any other concerns. Prescriptions: Amoxic-Pot Clav 875-125Mg [Augmentin 875-125] 1 tab PO Q12HR #20 tab Fluticasone Nasal Provencal [Flonase Nasal Provencal] 2 spr EA NOSTRIL DAILY #16 gm predniSONE 50 mg PO DAILY #5 tab Is patient prescribed a controlled substance at d/c from ED?: No Referrals: None,Stated [Primary Care Provider] - 1-2 days Time of Disposition: 11:46
[2025-04-18 12:11] VITALS: BP 168/120; PULSE 80; RESP 20
== END 2025-04-18 12:10 | disposition home or self-care (01) ==
LOC: EC 10:54
DX: H69.93 Unspecified Eustachian tube disorder, bilateral (principal); H66.93 Otitis media, unspecified, bilateral
CPT/HCPCS: 99282